=== PATIENT | male | born 1955 | race Caucasian/White ===

== ENCOUNTER 2022-04-01 19:36 | Outpatient (CLI) | payer MEDICARE, SELFPAY | END 2022-04-01 19:37 | disposition home or self-care (01) | LOC: AMB 04-30 16:05 | PROVIDERS: PCP Family Medicine; Visit Provider Emergency Medicine Emergency Medical Services | DX: R11.2 Nausea with vomiting, unspecified (principal); R53.1 Weakness | CPT/HCPCS: A0425; A0427 ==

== ENCOUNTER 2022-04-01 20:15 | Observation (INO) | payer MEDICARE, SELFPAY ==
[2022-04-01 20:20] VITALS: BP 154/81; PULSE 85; RESP 28; TEMP 37.4; O2SAT 88; BMI 36.3
--- NOTE | 2022-04-01 20:48 | CRLHL7_ITS ---
For Patients: As a result of the Cures Act, medical imaging exams and procedure reports are released immediately into your electronic medical record. You may view this report before your referring provider. If you have questions, please contact your health care provider. INDICATION: Cough and hypoxia. TECHNIQUE: Chest 1 views. COMPARISON: July 12, 2018. FINDINGS: Cardiovascular and mediastinum: Stable heart size. Lungs and pleural spaces: Low lung volumes. Left basilar atelectasis. No sign of pleural effusion. No pneumothorax. Bones and soft tissues: No significant findings. IMPRESSION: Left basilar atelectasis. Dictated by Everardo Pereira MD @ 04/01/2022 9:56:09 PM (Electronically Signed)
--- NOTE | 2022-04-01 20:52 | ED.NAVMDI ---
HPI - Nausea/Vomiting/Diarrhea General Chief complaint: Nausea/Vomiting Stated complaint: Weakness and vomiting Time Seen by Provider: 04/01/22 20:18 History of Present Illness HPI Narrative: 66-year-old man presenting to the emergency department with complaint of vomiting and diarrhea. Feeling weak. He is not actually short of breath. Past medical history does include a history of sleep apnea with CPAP. Admittedly diarrhea is rather a chronic thing. He wears ?diapers? he says. He has been vomiting without hematemesis. Started coughing last night and this seemed to return later today. This morning though he had a COVID shot. At this point now he feels chilled. Has not measured a fever. He does not actually have abdominal pain. No rashes noted. Is not complaining of dysuria. No chest pain. Past medical surgical history extracted from old [facility] document Bile reflux gastritis Paroxysmal atrial fibrillation Anticoagulation Nephrolithiasis Venous stasis dermatitis Systolic heart failure History of DVT Vitamin-D insufficiency Diabetes type 2 Autonomic neuropathy Polyneuropathy secondary diabetes History of pulmonary embolus Sleep apnea with CPAP Coronary artery disease I 1st Koplik's single anastomosis duodenal switch History of anxiety Dysthymia History of STEMI Venous insufficiency chronic Colonic neoplasm hypertension Obesity Status post gastric bypass Chronic kidney disease There Zaki rhinitis History choledocholithiasis Bilateral vitrectomy Charcot foot Related Data Home Medications Medication Instructions Recorded Confirmed ergocalciferol (vitamin D2) 1,250 04/01/22 mcg (50,000 unit) capsule glipizide 5 mg tablet, extended mg PO 04/01/22 release 24 hr lisinopril 10 tab 04/01/22 mg-hydrochlorothiazide 12.5 mg tablet metformin 500 mg tablet mg 04/01/22 metoprolol tartrate 50 mg tablet mg 04/01/22 nitroglycerin 0.4 mg sublingual mg 04/01/22 tablet omeprazole 20 mg capsule,delayed mg 04/01/22 release rivaroxaban 20 mg tablet (Xarelto) mg 04/01/22 simvastatin 20 mg tablet mg 04/01/22 Allergies Allergy/AdvReac Type Severity Reaction Status Date / Time NSAIDS (Non-Steroidal AdvReac Verified 04/01/22 20:25 Anti-Inflamma a statin AdvReac Unknown Uncoded 04/01/22 20:25 Review of Systems Status of ROS: Reports: 10 or more systems reviewed and unremarkable except as noted in History and below PFSH PFSH Social History Highest level of school completed/degree received: Associate degree: occupational, technical, vocational program Smoking Status: Never smoker Do you use any of these nicotine containing products: None Second hand tobacco smoke exposure: No How often do you have a drink containing alcohol: never AUDIT-C Alcohol total score: 0 Non-prescribed substance use: denies use Caffeine: Yes (coke or mountain dew daily) service: No Exam Narrative: Exam Narrative: Pleasant. Appears rather tired. Sounds a little congested. Oropharynx is dry. Dentition dry Appears chilled. Slightly tremulous. Cranial nerves 2-12 intact. Slight elevation with talking left side is mouth versus the right though Lungs is some diminished breath sounds in the left lower lung field. Otherwise clear cardiovascular Appears to be regular rate and rhythm. Distant. No JVD appreciated. Abdomen is overweight/obese soft and nontender. Lower extremities with just shy of 2+ pitting edema bilaterally. No erythematous changes. Const: Vital Signs, click to edit/add: Vital Signs - 24 hr 04/01/22 20:20 04/01/22 21:19 04/01/22 22:28 Temperature 99.4 F 98.8 F Pulse Rate [Left P ulse Oximeter] 85 79 Respiratory Rate 28 H 22 Blood Pressure [Ri ght Upper Arm] 154/81 H 135/68 Pulse Oximetry 88 96 94 Oxygen Delivery Me thod Room Air Nasal Cannula Oxygen Flow Rate 2 04/01/22 23:00 Temperature Pulse Rate [Left P ulse Oximeter] 74 Respiratory Rate 20 Blood Pressure [Ri ght Upper Arm] 131/55 L Pulse Oximetry 90 Oxygen Delivery Me thod Room Air Oxygen Flow Rate Documenting provider has reviewed patient's vital signs: yes Course Course Hospital Course: Placed on low-dose oxygen via nasal cannula Reevaluation(s) Reevaluation #1: Turned off oxygen. Satting at about 92-93%. Is no longer tremulous. Looks markedly improved. He would prefer to go home possible that he would defer to her recommendations. Time: 22:51 Reevaluation #2: With re-evaluation after turning off oxygenation as a test is satting at 89 90% as anticipated. Vital Signs Vital signs: Initial Vital Signs Temperature 99.4 F 04/01/22 20:20 Temperature Source Temporal Artery Scan 04/01/22 20:20 Pulse Rate 85 04/01/22 20:20 Respiratory Rate 28 H 04/01/22 20:20 Blood Pressure 154/81 H 04/01/22 20:20 Blood Pressure Mean 105 04/01/22 20:20 Blood Pressure Position Supine 04/01/22 20:20 Pulse Oximetry 88 04/01/22 20:20 Oxygen Delivery Method 04/01/22 20:20 Vital Signs Temperature 99.4 F 04/01/22 20:20 Pulse Rate 85 04/01/22 20:20 Respiratory Rate 28 H 04/01/22 20:20 Blood Pressure 154/81 H 04/01/22 20:20 Pulse Oximetry 88 04/01/22 20:20 Oxygen Delivery Method 04/01/22 20:20 Temperature 99 F 04/02/22 03:00 Pulse Rate 78 04/02/22 03:00 Respiratory Rate 20 04/02/22 03:00 Blood Pressure 152/55 H 04/02/22 03:00 Pulse Oximetry 94 04/02/22 03:00 Oxygen Delivery Method 04/02/22 03:00 Oxygen Flow Rate 2 04/01/22 22:28 MDM - Nausea/Vomiting/Diarrhea MDM Narrative Medical decision making narrative: After reassessment I did call our hospitalist. Pending full chemistries yet. Understandably he is now improved to low 90s with his oxygenation. I am concerned though given his comorbidities. Continues to drift down to 90% and below and rest. Was not actually sleeping with this as might expect given history of sleep apnea. COVID indeed positive. I also think Mr. Vernon would be too weak to go home. Contacted our hospitalist again for admission. This will go to overnight coverage. Given magnesium infusion Initial lactate 2. 2 hour repeat improves to 1.4. Had received L of fluids in the interim. Medical Records Attestation: I reviewed the patient's medical records. Lab Data Attestation: I reviewed the patient's lab results. Labs: Lab Results 04/01/22 04/01/22 04/01/22 Range/Units 21:10 21:10 21:10 WBC 9.50 (4.50-11.00) K/uL RBC 3.76 L (4.30-5.90) m/uL Hgb 11.1 L (13.5-17.5) gm/dL Hct 33.5 L (37.0-53.0) % MCV 89 (80-100) fL MCH 30 (26-34) pg MCHC 33 (32-36) gm/dL RDW Coeff of Rama 13.7 (11.5-15.5) % Plt Count 235 (140-440) K/uL Neut % (Auto) 85.7 H (42.0-72.0) % Lymph % (Auto) 4.5 L (20-44) % Mcclain % (Auto) 8.8 (0.0-11.0) % Eos % (Auto) 0.7 (0.0-7.0) % Baso % (Auto) 0.2 (0.0-3.0) % Neut # (Auto) 8.10 H (1.7-7.0) K/uL Lymph # (Auto) 0.40 L (0.90-2.90) K/uL Mcclain # (Auto) 0.80 (0.00-0.90) K/UL Eos # (Auto) 0.07 (0.00-0.50) K/uL Baso # (Auto) 0.02 (0.00-0.30) K/uL Abs Immat Gran (auto) 0.01 (0.00-0.30) K/uL INR 1.10 (0.91-1.10) VBG pH (7.32-7.43) VBG pCO2 (40-50) mmHG VBG pO2 (25-47) mmHG VBG HCO3 (21-28) mmol/L Sodium (135-149) mmol/L Potassium (3.6-5.1) mmol/L Chloride (96-114) mmol/L Carbon Dioxide (20-32) mmol/L BUN (7-30) mg/dL Creatinine (0.5-1.5) mg/dL Estimated Creat Clear Estimated GFR ml/min Glucose (60-115) mg/dL Venous Lactic Acid (Serial Order) Calcium (8.4-10.6) mg/dL Magnesium 1.5 (1.5-2.6) mg/dL Total Bilirubin (0.1-1.5) mg/dL Direct Bilirubin (0.0-0.5) mg/dL AST (12-35) U/L ALT (4-50) U/L Alkaline Phosphatase (40-150) U/L C-Reactive Protein 1.5 H (0.5-1.0) mg/dL NT-Pro-B Natriuret Pep (0-125) PG/mL Total Protein (6.0-8.3) g/dL Albumin (3.3-5.0) g/dL SARS-CoV-2 (PCR) (Negative) SARS-CoV-2 Ag (Rapid) (Negative) 04/01/22 04/01/22 04/01/22 Range/Units 21:10 21:10 21:10 WBC (4.50-11.00) K/uL RBC (4.30-5.90) m/uL Hgb (13.5-17.5) gm/dL Hct (37.0-53.0) % MCV (80-100) fL MCH (26-34) pg MCHC (32-36) gm/dL RDW Coeff of Rama (11.5-15.5) % Plt Count (140-440) K/uL Neut % (Auto) (42.0-72.0) % Lymph % (Auto) (20-44) % Mcclain % (Auto) (0.0-11.0) % Eos % (Auto) (0.0-7.0) % Baso % (Auto) (0.0-3.0) % Neut # (Auto) (1.7-7.0) K/uL Lymph # (Auto) (0.90-2.90) K/uL Mcclain # (Auto) (0.00-0.90) K/UL Eos # (Auto) (0.00-0.50) K/uL Baso # (Auto) (0.00-0.30) K/uL Abs Immat Gran (auto) (0.00-0.30) K/uL INR (0.91-1.10) VBG pH 7.418 (7.32-7.43) VBG pCO2 40 (40-50) mmHG VBG pO2 42.0 (25-47) mmHG VBG HCO3 26 (21-28) mmol/L Sodium (135-149) mmol/L Potassium (3.6-5.1) mmol/L Chloride (96-114) mmol/L Carbon Dioxide (20-32) mmol/L BUN (7-30) mg/dL Creatinine (0.5-1.5) mg/dL Estimated Creat Clear Estimated GFR ml/min Glucose (60-115) mg/dL Venous Lactic Acid (Serial Order) Calcium (8.4-10.6) mg/dL Magnesium (1.5-2.6) mg/dL Total Bilirubin (0.1-1.5) mg/dL Direct Bilirubin (0.0-0.5) mg/dL AST (12-35) U/L ALT (4-50) U/L Alkaline Phosphatase (40-150) U/L C-Reactive Protein (0.5-1.0) mg/dL NT-Pro-B Natriuret Pep (0-125) PG/mL Total Protein (6.0-8.3) g/dL Albumin (3.3-5.0) g/dL SARS-CoV-2 (PCR) POSITIVE SARS-CoV-2 A (Negative) SARS-CoV-2 Ag (Rapid) (Negative) 04/01/22 04/01/22 04/01/22 Range/Units 21:10 21:10 22:14 WBC (4.50-11.00) K/uL RBC (4.30-5.90) m/uL Hgb (13.5-17.5) gm/dL Hct (37.0-53.0) % MCV (80-100) fL MCH (26-34) pg MCHC (32-36) gm/dL RDW Coeff of Rama (11.5-15.5) % Plt Count (140-440) K/uL Neut % (Auto) (42.0-72.0) % Lymph % (Auto) (20-44) % Mcclain % (Auto) (0.0-11.0) % Eos % (Auto) (0.0-7.0) % Baso % (Auto) (0.0-3.0) % Neut # (Auto) (1.7-7.0) K/uL Lymph # (Auto) (0.90-2.90) K/uL Mcclain # (Auto) (0.00-0.90) K/UL Eos # (Auto) (0.00-0.50) K/uL Baso # (Auto) (0.00-0.30) K/uL Abs Immat Gran (auto) (0.00-0.30) K/uL INR (0.91-1.10) VBG pH (7.32-7.43) VBG pCO2 (40-50) mmHG VBG pO2 (25-47) mmHG VBG HCO3 (21-28) mmol/L Sodium 138 (135-149) mmol/L Potassium 3.6 (3.6-5.1) mmol/L Chloride 107 (96-114) mmol/L Carbon Dioxide 22 (20-32) mmol/L BUN 13 (7-30) mg/dL Creatinine 1.3 (0.5-1.5) mg/dL Estimated Creat Clear 57.41 Estimated GFR 61 ml/min Glucose 114 (60-115) mg/dL Venous Lactic Acid (Serial Order) Calcium 8.2 L (8.4-10.6) mg/dL Magnesium (1.5-2.6) mg/dL Total Bilirubin 0.5 (0.1-1.5) mg/dL Direct Bilirubin 0.3 (0.0-0.5) mg/dL AST 65 H (12-35) U/L ALT 33 (4-50) U/L Alkaline Phosphatase 92 (40-150) U/L C-Reactive Protein (0.5-1.0) mg/dL NT-Pro-B Natriuret Pep 1810 H (0-125) PG/mL Total Protein 6.2 (6.0-8.3) g/dL Albumin 3.3 (3.3-5.0) g/dL SARS-CoV-2 (PCR) (Negative) SARS-CoV-2 Ag (Rapid) positive (Negative) Discharge Plan Discharge Clinical Impression: COVID-19, Weakness, Dehydration Patient Disposition: Admitted As Inpatient Condition: Stable
[2022-04-01] MEDS: 0.9 % SODIUM CHLORIDE 1000 ml 1,000 ML IV (21:16)
[2022-04-01] MEDS: ONDANSETRON 2 MG/ML inj 4 MG IVP (21:16)
[2022-04-01 21:19] VITALS: O2SAT 96
[2022-04-01 21:23] LABS: Basophils Absolute Auto 0.02 K/uL (0.00-0.30); Basophils Percent Auto 0.2 % (0.0-3.0); Eosinophils Absolute Auto 0.07 K/uL (0.00-0.50); Eosinophils Percent Auto 0.7 % (0.0-7.0); Hematocrit 33.5 % (37.0-53.0); Hemoglobin* 11.1 gm/dL (13.5-17.5); Immature Granulocytes Abs Auto 0.01 K/uL (0.00-0.30); Lymphocytes Percent Auto 4.5 % (20-44); Mean Corpuscular HGB Conc 33 gm/dL (32-36); Mean Corpuscular Hemoglobin 30 pg (26-34); Mean Corpuscular Volume 89 fL (80-100); Monocytes Percent Auto 8.8 % (0.0-11.0); Neutrophils Percent Auto 85.7 % (42.0-72.0); Platelet Count* 235 K/uL (140-440); RDW Coefficient of Variation % 13.7 % (11.5-15.5); Red Blood Count 3.76 m/uL (4.30-5.90)
[2022-04-01 21:24] LABS: PCO2 VBG 40 mmHG (40-50); pH VBG 7.418 (7.32-7.43)
[2022-04-01 21:25] LABS: HCO3 VBG 26 mmol/L (21-28); Slide Review Reflex No
[2022-04-01 21:43] LABS: Magnesium* 1.5 mg/dL (1.5-2.6)
[2022-04-01 21:47] LABS: C Reactive Protein* 1.5 mg/dL (0.5-1.0)
[2022-04-01 21:52] LABS: NT Pro B Type NatriureticPept* 1810 PG/mL (0-125)
[2022-04-01 22:03] LABS: SARS PCR* POSITIVE SARS-CoV-2 (Negative)
[2022-04-01 22:07] LABS: Prothrombin Time 14.6 Seconds
[2022-04-01 22:28] VITALS: BP 135/68; PULSE 79; RESP 22; TEMP 37.1; O2SAT 94
[2022-04-01] MEDS: MAGNESIUM SULFATE 2 GM/50 ML PIGGYBACK IVPB (22:29)
[2022-04-01 22:48] LABS: SARS Antigen* positive (Negative)
[2022-04-01 22:49] LABS: Albumin* 3.3 g/dL (3.3-5.0); Chloride* 107 mmol/L (96-114); Sodium* 138 mmol/L (135-149)
[2022-04-01 22:50] LABS: Potassium* 3.6 mmol/L (3.6-5.1)
[2022-04-01 22:52] LABS: Alanine Aminotransferase* 33 U/L (4-50); Alkaline Phosphatase* 92 U/L (40-150); Aspartate Amino Transferase* 65 U/L (12-35); Bilirubin Direct* 0.3 mg/dL (0.0-0.5); Bilirubin Total* 0.5 mg/dL (0.1-1.5); Blood Urea Nitrogen* 13 mg/dL (7-30); Carbon Dioxide* 22 mmol/L (20-32); Creatinine* 1.3 mg/dL (0.5-1.5); Est. Creatinine Clearance* 57.41; Estimated Glomerular Filt Rate 61 ml/min; Glucose* 114 mg/dL (60-115); Total Protein* 6.2 g/dL (6.0-8.3)
[2022-04-01 22:53] LABS: Calcium* 8.2 mg/dL (8.4-10.6)
[2022-04-01 23:00] VITALS: BP 131/55; PULSE 74; RESP 20; O2SAT 90
[2022-04-01 23:28] LABS: Lactate Sepsis 2 Hour 1.4 mmol/L (0.5-1.9)
--- NOTE | 2022-04-01 23:42 | ED.NURSE ---
ambulated pt. pt stated he felt weak. pt is worried about his at home and between the two of them not being able to takecare of him. informed.
--- NOTE | 2022-04-01 23:51 | W.PC.EDHO ---
Primary Language: Preferred Language: Orientation Status: [x] Alert & Oriented [] Slight Confusion [] Known Dx Dementia Transfers By: [] Assist of 1 [x] Assist of 2 [] Lift Active Medications Discontinued Medications Generic Name Dose Route Start Last Admin Trade Name Inderjit PRN Reason Stop Dose Admin Sodium Chloride 1,000 mls @ 1,000 mls/hr 04/01/22 20:48 04/01/22 22:30 0.9 % Sodium Chloride 1000 Ml IV 04/01/22 21:47 Infused .Q1H ONE Infusion Magnesium Sulfate 2 gm 04/01/22 22:08 04/01/22 22:29 Magnesium Sulfate 2 Gm/50 Ml Piggyback IVPB 04/01/22 22:09 2 gm ONCE ONE Administration Ondansetron HCl 4 mg 04/01/22 20:48 04/01/22 21:16 Ondansetron 2 Mg/Ml Inj IVP 04/01/22 20:49 4 mg ONCE ONE Administration Description of Symptoms ED Triage Present Problem pt was feeling well this am, got covid booster Description shot ~1000, presents now with weakness, n/v. states diarrhea is chronic. denies acute pains. has chronic back issues. ED Triage Date of Onset of 04/01/22 Symptoms Pain Pain Intensity 6 Oxygen Administration Pulse Oximetry 94 Pulse Oximetry 96 Pulse Oximetry 88 Oxygen Delivery Method Nasal Cannula Oxygen Delivery Method Room Air Oxygen Flow Rate 2
[2022-04-02] VITALS: BP 121/71; PULSE 74; RESP 16; O2SAT 91
[2022-04-02] MEDS: dexAMETHasone 10 MG/ML inj 6 MG IVP (00:10)
[2022-04-02 00:35] VITALS: BP 149/73; PULSE 74; RESP 18; RESP 20; TEMP 37.3; O2SAT 96; BMI 36.7
[2022-04-02 00:41] VITALS: O2SAT 96
--- NOTE | 2022-04-02 00:48 | PM.IMCN1 ---
Date of Consult Consult date: 04/02/22 Primary Care Provider: Domingo Sheffield MD Consult Narrative Narrative: Loki Vernon is a 66 year old male [facility] Social History Smoking Status: Never smoker How often do you have a drink containing alcohol: never AUDIT-C Alcohol total score: 0 Non-prescribed substance use: denies use Meds Home Medications and Allergies Home Medications Medication Instructions Recorded Confirmed Type ergocalciferol (vitamin D2) 1,250 04/01/22 History mcg (50,000 unit) capsule glipizide 5 mg tablet, extended mg PO 04/01/22 History release 24 hr lisinopril 10 tab 04/01/22 History mg-hydrochlorothiazide 12.5 mg tablet metformin 500 mg tablet mg 04/01/22 History metoprolol tartrate 50 mg tablet mg 04/01/22 History nitroglycerin 0.4 mg sublingual mg 04/01/22 History tablet omeprazole 20 mg capsule,delayed mg 04/01/22 History release rivaroxaban 20 mg tablet (Xarelto) mg 04/01/22 History simvastatin 20 mg tablet mg 04/01/22 History Allergies Allergy/AdvReac Type Severity Reaction Status Date / Time NSAIDS (Non-Steroidal AdvReac Verified 04/01/22 20:25 Anti-Inflamma a statin AdvReac Unknown Uncoded 04/01/22 20:25 Exam Const: Vital Signs, click to edit/add: Vital Signs - 24 hr 04/01/22 20:20 04/01/22 21:19 04/01/22 22:28 Temperature 99.4 F 98.8 F Pulse Rate [Left P ulse Oximeter] 85 79 Respiratory Rate 28 H 22 Blood Pressure [Ri ght Upper Arm] 154/81 H 135/68 Pulse Oximetry 88 96 94 Oxygen Delivery Me thod Room Air Nasal Cannula Oxygen Flow Rate 2 04/02/22 00:00 04/01/22 23:00 Temperature Pulse Rate [Left P ulse Oximeter] 74 74 Respiratory Rate 16 20 Blood Pressure [Ri ght Upper Arm] 121/71 131/55 L Pulse Oximetry 91 90 Oxygen Delivery Me thod Room Air Room Air Oxygen Flow Rate Labs Labs: Short CBC 04/01/22 Range/Units 21:10 WBC 9.50 (4.50-11.00) K/uL Hgb 11.1 L (13.5-17.5) gm/dL Hct 33.5 L (37.0-53.0) % Plt Count 235 (140-440) K/uL BMP 04/01/22 21:10 Sodium 138 Potassium 3.6 Chloride 107 Carbon Dioxide 22 BUN 13 Creatinine 1.3 Glucose 114 Calcium 8.2 L Liver Function 04/01/22 Range/Units 21:10 Total Bilirubin 0.5 (0.1-1.5) mg/dL Direct Bilirubin 0.3 (0.0-0.5) mg/dL AST 65 H (12-35) U/L ALT 33 (4-50) U/L Alkaline Phosphatase 92 (40-150) U/L Albumin 3.3 (3.3-5.0) g/dL Assessment and Plan Assessment and plan (1) COVID-19: Status: Acute Plan [facility] Hospitalist CONSULTATION NOTE: Reason for consult: COVID infection HPI: Patient is a pleasant 66-year-old gentleman who had his COVID booster on the morning of 04/01/2022 and later on developed worsening cough. He had a bit of cough since the day prior. He is also had some fevers and chills. He had a mild headache but no lightheadedness. He denies any chest pain. He has not felt for particular short of breath despite being mildly hypoxic on presentation to the ER. He denies any abdominal pain, nausea, vomiting. He does have chronic diarrhea. He denies any dysuria. Patient is a non-smoker. He does not drink alcohol or use recreational drugs. We did discuss CODE STATUS and he wishes to be full code. Exam (performed via interactive video with assistance of bedside nurse): General: Alert, cooperative, no acute distress HEENT: Pupils reported ERRL, oral mucosa pink and moist without erythema Lungs: Clear to auscultation bilaterally without crackle or wheeze CV: Regular rate and rhythm without loud murmur rub or gallop Abd: Bowel sounds present, denies tenderness and does not exhibit signs of pain with palpation done by bedside nurse Ext: +2 pitting edema bilateral lower extremities Skin: No rashes, bruises or lesions appreciated on gross visualization of exposed skin Neuro: Alert, oriented x 3. CN III -VII, XI, XII grossly intact, moves all extremities without any significant focal deficit appreciated by nurse Assessment and Plan: 1. COVID infection Patient is a pleasant 66-year-old male admitted for COVID infection. He was requiring oxygen on presentation so we will place him on dexamethasone 6 mg IV daily. Remdesivir could be considered for the morning if available at the facility. We will work to titrate patient's oxygen off. We will place albuterol nebs.. He will also have PRNs for pain and nausea. His chronic outpatient medications will need to be continued as appropriate when fully verified. He is chronically anticoagulated so no pharmacologic DVT prophylaxis has been ordered. Patient is a full code. [facility] you [facility]. This service is available for further assistance as requested by your care team by calling [phone].
[2022-04-02 03:00] VITALS: BP 152/55; PULSE 78; RESP 20; TEMP 37.2; O2SAT 94
--- NOTE | 2022-04-02 06:34 | PC.NURSE ---
Admission/shift note: Pt to room 279 for weakness r/t Covid. A&O, afebrile, oxygen saturations in the low to mid 90's on room air. Pt up SBA to the BR, incontinent of urine/stool, but quite steady on his feet, pt reports he does not feel nearly as weak as he did before coming to the ER. Pt denies SOB, CP, and N/V. No emesis this shift and has denied need for PRN antiemetic. Pt stated he has chronic pain that is always 5/10, pt declined any pain medication. Pt resting in bed with call light within reach.
[2022-04-02 08:41] VITALS: BP 129/67; PULSE 74; RESP 20; TEMP 36.5; O2SAT 97
--- NOTE | 2022-04-02 13:18 | PM.DS1 ---
DS: Providers Provider Time Seen by Provider: 08:52 Date Seen: 04/02/22 Date of admission: 04/01/22 23:38 Primary care physician: Domingo Sheffield MD Admitting Clinician: Dash Ramírez MD Attending Physician on discharge: Ashley Beaulieu MD Date of Discharge: 04/02/22 DS: Diagnosis Discharge Diagnosis (1) Weakness: Status: Acute (2) Dehydration: Status: Acute (3) COVID-19: Status: Acute (4) Hyperlipidemia: Status: Chronic (5) Diabetes mellitus type 2 in obese: Status: Chronic Problem details: Diagnosed 1989, severe neuropathy, proliferative retinopathy, bilateral vitrectomy, Charcot foot on the left in 2010, retinal exam stable in 2012 (6) Hypertension: Status: Chronic (7) Coronary artery disease: Status: Chronic (8) Heart failure with preserved ejection fraction: Status: Chronic (9) Paroxysmal atrial fibrillation: Status: Chronic (10) Anticoagulation adequate: Status: Acute DS: Summary Hospital Course Hospital Course: This is a 66-year-old male who got his 4th COVID vaccination yesterday morning with the bivalent vaccine. Suddenly in the afternoon he felt weak, fatigued, nauseous and noted a dry cough. He came in for evaluation and was found to have positive COVID PCR. Although he was briefly on oxygen via nasal cannula in the emergency department, he has not needed it at all since then and has had no chest pain or shortness of breath. He was starting to feel much better already last night and today is almost back to normal. He did get 1 dose of dexamethasone, but he has not needed any oxygen overnight. We had a lengthy discussion about paxlovid, Remdesivir, and dexamethasone. Since he is on Xarelto, he would be unable to take paxlovid. He is checking with his insurance to see if Remdesivir will be covered. Although I have ordered it, he has not yet wanted to get the medication until he knows if it will be covered. He is well enough and improved that he will go home today. If he chooses to get Remdesivir today prior to going home, I will order it going forward as well for a total of 3 doses. Status at Discharge Functional status at discharge: independent ambulation Overall status at discharge: patient is back to baseline Time Spent with Patient Time attestation: Total time spent providing and/or coordinating discharge services: Exam Narrative: Exam Narrative: General: No acute distress. Awake, alert, oriented x3. No pallor. No jaundice. Oropharynx: Clear. Mucous membranes moist. Cardiovascular: Regular rate and rhythm. No murmurs, gallops, or rubs. Respiratory: Clear to auscultation bilaterally. No wheezes or crackles. Abdomen: Bowel sounds present. Soft, nondistended, nontender. Extremities: No pedal edema. Const: Vital Signs, click to edit/add: Vital Signs - 24 hr 04/01/22 20:20 04/01/22 21:19 04/01/22 22:28 Temperature 99.4 F 98.8 F Pulse Rate [Left P ulse Oximeter] 85 79 Respiratory Rate 28 H 22 Blood Pressure [Le ft Arm] Blood Pressure [Ri ght Arm] Blood Pressure [Ri ght Upper Arm] 154/81 H 135/68 Pulse Oximetry 88 96 94 Oxygen Delivery Me thod Room Air Nasal Cannula Oxygen Flow Rate 2 04/02/22 00:35 04/02/22 00:35 04/02/22 00:00 Temperature 99.2 F Pulse Rate [Left P ulse Oximeter] 74 74 Respiratory Rate 18 20 16 Blood Pressure [Le ft Arm] 149/73 H Blood Pressure [Ri ght Arm] Blood Pressure [Ri ght Upper Arm] 121/71 Pulse Oximetry 96 96 91 Oxygen Delivery Me thod Room Air Room Air Room Air Oxygen Flow Rate 04/01/22 23:00 04/02/22 00:41 04/02/22 03:00 Temperature 99 F Pulse Rate [Left P ulse Oximeter] 74 78 Respiratory Rate 20 20 Blood Pressure [Le ft Arm] 152/55 H Blood Pressure [Ri ght Arm] Blood Pressure [Ri ght Upper Arm] 131/55 L Pulse Oximetry 90 96 94 Oxygen Delivery Me thod Room Air Room Air Room Air Oxygen Flow Rate 04/02/22 08:41 Temperature 97.7 F Pulse Rate [Left P ulse Oximeter] 74 Respiratory Rate 20 Blood Pressure [Le ft Arm] Blood Pressure [Ri ght Arm] 129/67 Blood Pressure [Ri ght Upper Arm] Pulse Oximetry 97 Oxygen Delivery Me thod Room Air Oxygen Flow Rate DS: Data Data Completed and Pending Completed studies during hospitalization: Ordering Physician: Raj Collier MD Date of Service: 04/01/22 Procedure(s): XR chest 1V portable Accession Number(s): [id number] cc: Domingo Sheffield MD; Raj Collier MD~ For Patients: As a result of the Century Cures Act, medical imaging exams and procedure reports are released immediately into your electronic medical record. You may view this report before your referring provider. If you have questions, please contact your health care provider. INDICATION: Cough and hypoxia. TECHNIQUE: Chest 1 views. COMPARISON: July 12, 2018. FINDINGS: Cardiovascular and mediastinum: Stable heart size. Lungs and pleural spaces: Low lung volumes. Left basilar atelectasis. No sign of pleural effusion. No pneumothorax. Bones and soft tissues: No significant findings. IMPRESSION: Left basilar atelectasis. Dictated by Everardo Pereira MD @ 04/01/2022 9:56:09 PM (Electronically Signed) Labs on day of discharge: Labs from last 24 hours 04/01/22 04/01/22 04/01/22 22:14 21:10 21:10 WBC RBC Hgb Hct MCV MCH MCHC RDW Coeff of Rama Plt Count Neut % (Auto) Lymph % (Auto) [place] % (Auto) Eos % (Auto) Baso % (Auto) Neut # (Auto) Lymph # (Auto) [place] # (Auto) Eos # (Auto) Baso # (Auto) Abs Immat Gran (auto) INR VBG pH VBG pCO2 VBG pO2 VBG HCO3 Sodium 138 Potassium 3.6 Chloride 107 Carbon Dioxide 22 BUN 13 Creatinine 1.3 Estimated Creat Clear 57.41 Estimated GFR 61 Glucose 114 Venous Lactic Acid (Serial Order) Calcium 8.2 L Magnesium Total Bilirubin 0.5 Direct Bilirubin 0.3 AST 65 H ALT 33 Alkaline Phosphatase 92 C-Reactive Protein NT-Pro-B Natriuret Pep 1810 H Total Protein 6.2 Albumin 3.3 SARS-CoV-2 (PCR) SARS-CoV-2 Ag (Rapid) positive 04/01/22 04/01/22 04/01/22 21:10 21:10 21:10 WBC RBC Hgb Hct MCV MCH MCHC RDW Coeff of Rama Plt Count Neut % (Auto) Lymph % (Auto) [place] % (Auto) Eos % (Auto) Baso % (Auto) Neut # (Auto) Lymph # (Auto) [place] # (Auto) Eos # (Auto) Baso # (Auto) Abs Immat Gran (auto) INR VBG pH 7.418 VBG pCO2 40 VBG pO2 42.0 VBG HCO3 26 Sodium Potassium Chloride Carbon Dioxide BUN Creatinine Estimated Creat Clear Estimated GFR Glucose Venous Lactic Acid (Serial Order) Calcium Magnesium Total Bilirubin Direct Bilirubin AST ALT Alkaline Phosphatase C-Reactive Protein NT-Pro-B Natriuret Pep Total Protein Albumin SARS-CoV-2 (PCR) POSITIVE SARS-CoV-2 A SARS-CoV-2 Ag (Rapid) 04/01/22 04/01/22 04/01/22 21:10 21:10 21:10 WBC 9.50 RBC 3.76 L Hgb 11.1 L Hct 33.5 L MCV 89 MCH 30 MCHC 33 RDW Coeff of Rama 13.7 Plt Count 235 Neut % (Auto) 85.7 H Lymph % (Auto) 4.5 L [place] % (Auto) 8.8 Eos % (Auto) 0.7 Baso % (Auto) 0.2 Neut # (Auto) 8.10 H Lymph # (Auto) 0.40 L [place] # (Auto) 0.80 Eos # (Auto) 0.07 Baso # (Auto) 0.02 Abs Immat Gran (auto) 0.01 INR 1.10 VBG pH VBG pCO2 VBG pO2 VBG HCO3 Sodium Potassium Chloride Carbon Dioxide BUN Creatinine Estimated Creat Clear Estimated GFR Glucose Venous Lactic Acid (Serial Order) Calcium Magnesium 1.5 Total Bilirubin Direct Bilirubin AST ALT Alkaline Phosphatase C-Reactive Protein 1.5 H NT-Pro-B Natriuret Pep Total Protein Albumin SARS-CoV-2 (PCR) SARS-CoV-2 Ag (Rapid) Discharge Plan Discharge Disposition: Home, Self-Care Date of Admission: 04/01/22 23:38 Attending Provider on Discharge: Ashley Beaulieu Primary Care Provider: Domingo Sheffield Condition: Improved Anticipated Discharge Date/Time: 04/02/22 13:15 Discharge Medications: Continued metformin 500 mg tablet 1,000 mg PO BIDWM glipizide 5 mg tablet extended release 24hr 15 mg PO DAILY simvastatin 20 mg tablet 20 mg PO HS metoprolol tartrate 50 mg tablet 50 mg PO BID nitroglycerin 0.4 mg tablet, sublingual 0.4 mg sublingual Q5M PRN Label Comments: ONE TABLET UNDER TONGUE NEEDED FOR CHEST PAIN omeprazole 20 mg capsule,delayed release(DR/EC) 40 mg PO DAILY Label Comments: TAKE 2 CAPSULES BY MOUTH DAILY ergocalciferol (vitamin D2) 1,250 mcg (50,000 unit) capsule 50,000 unit PO DAILY Label Comments: TAKE 1 CAPSULE BY MOUTH DAILY AFTER BARIATRIC SURGERY lisinopril-hydrochlorothiazide 10-12.5 mg tablet 1 tab PO DAILY Label Comments: TAKE 1 TABLET BY MOUTH EVERY DAY Xarelto 20 mg tablet 20 mg PO DAILY@18 albuterol sulfate [Ventolin HFA] 90 mcg/actuation HFA aerosol inhaler 2 inh inhalation QID PRN ascorbic acid (vitamin C) 500 mg tablet 1 g PO DAILY calcium carbonate-vitamin D3 [Calcium 600 + D(3)] 600 mg-5 mcg (200 unit) tablet 2 tab PO BID cetirizine [24Hour Allergy] 10 mg tablet 10 mg PO DAILY PRN copper gluconate 2 mg tablet 4 mg PO DAILY cyanocobalamin (vitamin B-12) [Vitamin B-12] 1,000 mcg tablet 500 mcg PO DAILY ferrous sulfate [Feosol] 325 mg (65 mg iron) tablet 325 mg PO BID magnesium oxide 400 mg (241.3 mg magnesium) tablet 400 mg PO DAILY multivitamin Tablet 1 tab PO DAILY vitamin A 10,000 unit capsule 10,000 unit PO DAILY zinc sulfate 50 mg zinc (220 mg) capsule 50 mg PO BID Discharge Orders: Discharge Order (Routine); Ordered 04/02/22 Ordered By: Ashley Beaulieu Patient Education: Remdesivir (By injection) (Paul), Weakness (ALICE), COVID-19 (Coronavirus Disease 2019) (ALICE) Activity Restrictions/Additional Instructions: Remdesivir IV daily for 2 more days, start tomorrow. Activity Level: Activity as Tolerated Discharge Diet: Diabetic Follow Up Appointments: Domingo Sheffiedl MD [Primary Care Provider] - (as needed) Forms: [employer] Info Instructions
--- NOTE | 2022-04-02 14:39 | PM.IMHP1 ---
Hospitalist- H&P: HPI History of Present Illness Time Seen by Provider: 08:52 Date Seen: 04/02/22 Chief complaint: Weakness and vomiting Narrative: Loki Vernon is a 66 year old male who got his 4th COVID vaccination yesterday morning with the bivalent vaccine. Suddenly in the afternoon he felt weak, fatigued, nauseous and noted a dry cough. He came in for evaluation and was found to have positive COVID PCR. Although he was briefly on oxygen via nasal cannula in the emergency department, he has not needed it at all since then and has had no chest pain or shortness of breath. He was starting to feel much better already last night and today is almost back to normal. He did get 1 dose of dexamethasone, but he has not needed any oxygen overnight. Review of Systems Status of ROS: Reports: 6 or more systems reviewed and unremarkable except as noted in History and below [facility] Medical History (Updated 04/02/22 @ 15:10 by Ashley Beaulieu MD) Allergic rhinitis Anemia of chronic disease Anticoagulation adequate Anxiety state Autonomic neuropathy Benign neoplasm of colon Bilateral kidney stones Bile reflux gastritis Chronic kidney disease Chronic venous insufficiency Coronary artery disease Depressive disorder Diabetes mellitus type 2 in obese Diabetic polyneuropathy Heart failure with preserved ejection fraction History of dysthymic disorder Hyperlipidemia Hypertension Morbid obesity Myocardial infarction PADMINI (obstructive sleep apnea) Paroxysmal atrial fibrillation Vitamin D insufficiency Surgical History (Updated 04/02/22 @ 15:15 by Ashley Beaulieu MD) H/O cataract extraction H/O heart artery stent H/O laminectomy H/O vitrectomy History of appendectomy History of bilateral YAG laser iridotomy History of carpal tunnel release History of esophagogastroduodenoscopy (EGD) S/P cholecystectomy Social History Highest level of school completed/degree received: Associate degree: occupational, technical, vocational program Smoking Status: Never smoker Do you use any of these nicotine containing products: None Second hand tobacco smoke exposure: No How often do you have a drink containing alcohol: never AUDIT-C Alcohol total score: 0 Non-prescribed substance use: denies use Caffeine: Yes (coke or mountain dew daily) service: No Meds Home Medications and Allergies Home Medications Medication Instructions Recorded Confirmed Type ergocalciferol (vitamin D2) 1,250 50,000 unit PO DAILY 04/01/22 04/02/22 History mcg (50,000 unit) capsule glipizide 5 mg tablet, extended 15 mg PO DAILY 04/01/22 04/02/22 History release 24 hr lisinopril 10 1 tab PO DAILY 04/01/22 04/02/22 History mg-hydrochlorothiazide 12.5 mg tablet metformin 500 mg tablet 1,000 mg PO BIDWM 04/01/22 04/02/22 History metoprolol tartrate 50 mg tablet 50 mg PO BID 04/01/22 04/02/22 History nitroglycerin 0.4 mg sublingual 0.4 mg sublingual Q5M PRN 04/01/22 04/02/22 History tablet omeprazole 20 mg capsule,delayed 40 mg PO DAILY 04/01/22 04/02/22 History release rivaroxaban 20 mg tablet (Xarelto) 20 mg PO DAILY@18 04/01/22 04/02/22 History simvastatin 20 mg tablet 20 mg PO HS 04/01/22 04/02/22 History albuterol sulfate 90 mcg/actuation 2 inh inhalation QID PRN 04/02/22 04/02/22 History aerosol inhaler (Ventolin HFA) ascorbic acid (vitamin C) 500 mg 1 g PO DAILY 04/02/22 04/02/22 History tablet calcium carbonate 600 mg-vitamin 2 tab PO BID 04/02/22 04/02/22 History D3 5 mcg (200 unit) tablet (Calcium 600 + D(3)) cetirizine 10 mg tablet (24Hour 10 mg PO DAILY PRN 04/02/22 04/02/22 History Allergy) copper gluconate 2 mg tablet 4 mg PO DAILY 04/02/22 04/02/22 History cyanocobalamin (vitamin B-12) 500 mcg PO DAILY 04/02/22 04/02/22 History 1,000 mcg tablet (Vitamin B-12) ferrous sulfate 325 mg (65 mg 325 mg PO BID 04/02/22 04/02/22 History iron) tablet (Feosol) magnesium oxide 400 mg (241.3 mg 400 mg PO DAILY 04/02/22 04/02/22 History magnesium) tablet multivitamin 1 tab PO DAILY 04/02/22 04/02/22 History vitamin A 10,000 unit capsule 10,000 unit PO DAILY 04/02/22 04/02/22 History zinc sulfate 50 mg zinc (220 mg) 50 mg PO BID 04/02/22 04/02/22 History capsule Allergies Allergy/AdvReac Type Severity Reaction Status Date / Time NSAIDS (Non-Steroidal AdvReac Verified 04/01/22 20:25 Anti-Inflamma a statin AdvReac Unknown Uncoded 04/01/22 20:25 Exam Narrative: Exam Narrative: Same day admission/discharge, see d/c summary for exam Const: Vital Signs, click to edit/add: Vital Signs - 24 hr 04/01/22 20:20 04/01/22 21:19 04/01/22 22:28 Temperature 99.4 F 98.8 F Pulse Rate [Left P ulse Oximeter] 85 79 Respiratory Rate 28 H 22 Blood Pressure [Le ft Arm] Blood Pressure [Ri ght Arm] Blood Pressure [Ri ght Upper Arm] 154/81 H 135/68 Pulse Oximetry 88 96 94 Oxygen Delivery Me thod Room Air Nasal Cannula Oxygen Flow Rate 2 04/02/22 00:35 04/02/22 00:35 04/02/22 00:00 Temperature 99.2 F Pulse Rate [Left P ulse Oximeter] 74 74 Respiratory Rate 18 20 16 Blood Pressure [Le ft Arm] 149/73 H Blood Pressure [Ri ght Arm] Blood Pressure [Ri ght Upper Arm] 121/71 Pulse Oximetry 96 96 91 Oxygen Delivery Me thod Room Air Room Air Room Air Oxygen Flow Rate 04/01/22 23:00 04/02/22 00:41 04/02/22 03:00 Temperature 99 F Pulse Rate [Left P ulse Oximeter] 74 78 Respiratory Rate 20 20 Blood Pressure [Le ft Arm] 152/55 H Blood Pressure [Ri ght Arm] Blood Pressure [Ri ght Upper Arm] 131/55 L Pulse Oximetry 90 96 94 Oxygen Delivery Me thod Room Air Room Air Room Air Oxygen Flow Rate 04/02/22 08:41 Temperature 97.7 F Pulse Rate [Left P ulse Oximeter] 74 Respiratory Rate 20 Blood Pressure [Le ft Arm] Blood Pressure [Ri ght Arm] 129/67 Blood Pressure [Ri ght Upper Arm] Pulse Oximetry 97 Oxygen Delivery Me thod Room Air Oxygen Flow Rate Hospitalist - H&P: Result Labs Labs: Short CBC 04/01/22 Range/Units 21:10 WBC 9.50 (4.50-11.00) K/uL Hgb 11.1 L (13.5-17.5) gm/dL Hct 33.5 L (37.0-53.0) % Plt Count 235 (140-440) K/uL BMP 04/01/22 21:10 Sodium 138 Potassium 3.6 Chloride 107 Carbon Dioxide 22 BUN 13 Creatinine 1.3 Glucose 114 Calcium 8.2 L Liver Function 04/01/22 Range/Units 21:10 Total Bilirubin 0.5 (0.1-1.5) mg/dL Direct Bilirubin 0.3 (0.0-0.5) mg/dL AST 65 H (12-35) U/L ALT 33 (4-50) U/L Alkaline Phosphatase 92 (40-150) U/L Albumin 3.3 (3.3-5.0) g/dL Ordering Physician: Raj Collier MD Date of Service: 04/01/22 Procedure(s): XR chest 1V portable Accession Number(s): [id number] cc: Domingo Sheffield MD; Raj Collier MD~ For Patients: As a result of the Century Cures Act, medical imaging exams and procedure reports are released immediately into your electronic medical record. You may view this report before your referring provider. If you have questions, please contact your health care provider. INDICATION: Cough and hypoxia. TECHNIQUE: Chest 1 views. COMPARISON: July 12, 2018. FINDINGS: Cardiovascular and mediastinum: Stable heart size. Lungs and pleural spaces: Low lung volumes. Left basilar atelectasis. No sign of pleural effusion. No pneumothorax. Bones and soft tissues: No significant findings. IMPRESSION: Left basilar atelectasis. Dictated by Everardo Pereira MD @ 04/01/2022 9:56:09 PM (Electronically Signed) Assessment and Plan Assessment and plan (1) COVID-19: Status: Acute (2) Weakness: Status: Acute (3) Dehydration: Status: Acute (4) Anticoagulation adequate: Status: Acute (5) Paroxysmal atrial fibrillation: Status: Chronic (6) Heart failure with preserved ejection fraction: Status: Chronic (7) Coronary artery disease: Status: Chronic (8) Hypertension: Status: Chronic (9) Diabetes mellitus type 2 in obese: Problem comment: Diagnosed 1989, severe neuropathy, proliferative retinopathy, bilateral vitrectomy, Charcot foot on the left in 2011, retinal exam stable in 2012 Status: Chronic (10) Hyperlipidemia: Status: Chronic Plan Covid 19 infection, covid vaccination yesterday. Symptomatic with weakness, nausea, diarrhea, dehydration. Symptoms resolved. Not requiring oxygen (was briefly placed on oxygen via nasal cannula in the emergency department, but this was quickly discontinued). No chest pain or shortness of breath. Multiple chronic medical issues that are stable, on Xarelto for paroxysmal atrial fibrillation which precludes the use of paxlovid. Will do 3 days of Remdesivir. Patient received first dose of remdesivir here prior to discharge. I have set up 2 doses of Remdesivir for him as an outpatient over the next 2 days for a total of 3 days of Remdesivir.
--- NOTE | 2022-04-02 14:55 | PC.NURSE ---
Pt. currently receiving 1st dose of Remdesivir and with
--- NOTE | 2022-04-02 14:56 | PC.NURSE ---
Pt. currently receiving 1st dose of Remdesivir and will be discharged later this afternoon/evening and receive subsequent Remdesivir doses outpatient. Fact Sheet for Patients And Parent/Caregivers Emergency Use Authorization (EUA) Of Remdesivir For Coronavirus Disease 2019 (COVID-19) given to patient.
[2022-04-02 15:34] VITALS: BP 150/82; PULSE 65; RESP 18; O2SAT 95
--- NOTE | 2022-04-02 16:43 | PC.NURSE ---
Discharge 1620- Patient is given discharge instructions verbally and in print. All questions answered. IV left in place and covered with tubigrip as patient will be returning in the AM for IV remdesivir. He leaves with all belongings via wheelchair and is ambulatory. 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
== END 2022-04-02 16:20 | disposition home or self-care (01) ==
LOC: ED 21:27 → MEDSURG 23:39
PROVIDERS: Admitting Provider Internal Medicine; Emergency Provider Family Medicine; PCP Family Medicine; Visit Provider Internal Medicine
DX: U07.1 COVID-19 (principal); E86.0 Dehydration; E78.5 Hyperlipidemia, unspecified; E11.69 Type 2 diabetes mellitus with other specified complication; E66.9 Obesity, unspecified; Z68.36 Body mass index [BMI] 36.0-36.9, adult; I50.30 Unspecified diastolic (congestive) heart failure; I25.10 Atherosclerotic heart disease of native coronary artery without angina pectoris; I11.0 Hypertensive heart disease with heart failure; I48.0 Paroxysmal atrial fibrillation; G47.30 Sleep apnea, unspecified; R19.7 Diarrhea, unspecified; G62.9 Polyneuropathy, unspecified; Z79.01 Long term (current) use of anticoagulants; Z79.84 Long term (current) use of oral hypoglycemic drugs; R11.0 Nausea; R53.1 Weakness; R05.9 Cough, unspecified; R68.83 Chills (without fever)
CPT/HCPCS: 36415; 71045; 80048; 80076; 81001; 82803; 83735; 83880; 85025; 85610; 86140; 87040; 87426; 87635; 94761; 96361; 96365; 96375; 99284; 99285; A9270; G0378; J1100; J2405; J3475; J7030; J7050

== ENCOUNTER 2023-05-14 14:00 | Outpatient (RCR) | payer MEDICARE, SELFPAY | END 2023-07-17 15:10 | disposition home or self-care (01) | PROVIDERS: PCP Family Medicine; Visit Provider Family Medicine | DX: R26.9 Unspecified abnormalities of gait and mobility (principal); R26.81 Unsteadiness on feet; Z51.89 Encounter for other specified aftercare | CPT/HCPCS: 97110; 97112; 97162 ==

== ENCOUNTER 2023-10-20 12:47 | Outpatient (CLI) | payer MEDICARE, BC, SELFPAY | END 2023-10-20 12:48 | disposition home or self-care (01) | LOC: WOUND 12:49 | PROVIDERS: PCP Family Medicine; Referring Provider Family Medicine; Visit Provider Nurse Practitioner Family | DX: E11.621 Type 2 diabetes mellitus with foot ulcer (principal); L97.522 Non-pressure chronic ulcer of other part of left foot with fat layer exposed; I73.9 Peripheral vascular disease, unspecified; I89.0 Lymphedema, not elsewhere classified; Z79.84 Long term (current) use of oral hypoglycemic drugs | CPT/HCPCS: 11042; G0463 ==

== ENCOUNTER 2023-10-24 13:40 | Outpatient (CLI) | payer MEDICARE, BC, SELFPAY ==
--- NOTE | 2023-10-24 14:00 | US_ITS ---
Patient: CLEO PERES Facility:?[facility] Patient ID:?[id number] Site Patient ID:?[id number]. Site :?[id number] Study:?US-Extremity Bilateral REINALDO BILATERAL-10/24/2023 4:41:00 PM Ordering Physician:?ALTAF CARBAJAL CNP Final Report: INDICATION: Nonhealing wounds. COMPARISON: None available COMMENT: Ultrasound examination of the arterial supply of the lower extremities bilaterally was performed using real-time huff scale imaging (B mode 2D), color flow Doppler and spectral analysis. Right lower extremity: Satisfactory inflow with peak systolic velocity of 85 centimeters/second in the common femoral artery with triphasic waveforms. Appropriate diminution of peak systolic velocity through the superior femoral artery, with triphasic waveforms. Less than 30 percent increased peak systolic velocity in the mid right femoral artery, 1-19 percent stenosis, triphasic waveform. Appropriate diminution of peak systolic velocity through the popliteal artery with triphasic waveform There is markedly elevated peak systolic velocity in the right posterior tibial artery of 374 centimeters/second with triphasic waveform, indicating 50-75 percent stenosis. The anterior tibial artery has appropriate diminution of peak systolic velocity with biphasic waveform There is very low peak systolic velocity in the right dorsalis pedis artery of 10 centimeters per 2nd with monophasic waveform. There is appropriate termination of peak systolic velocity in the peroneal artery with monophasic waveform. On the left, there is satisfactory flow, peak systolic velocity in the common femoral artery 73 centimeters/second with triphasic waveform. There is less than 30 percent increased peak systolic velocity with preservation of triphasic waveforms in the proximal and mid femoral artery, 1-19 percent stenosis There is appropriate diminution of peak systolic velocity into the popliteal artery with biphasic waveform. There is markedly increased peak systolic velocity in the left posterior tibial artery of 424 centimeters/second with triphasic waveform, indicating greater than 75 percent stenosis. There is less than 30 percent increased peak systolic velocity in the anterior tibial artery, 1-19 percent stenosis, with triphasic waveform. There is appropriate diminution of peak systolic velocity in the left dorsalis pedis artery with monophasic waveform. There is low velocity in the left peroneal artery of 10 centimeters/second with monophasic waveform. IMPRESSION: 50-75 percent stenosis of the right posterior tibial artery. Very low flow velocity in the right dorsalis pedis artery suggesting upstream stenosis, but no distinct stenosis seen in the anterior tibial artery. Greater than 75 percent stenosis of the left posterior tibial artery. Dictated by Richard Barth MD @ 10/25/2023 12:27:02 PM Signed by:?Richard Barth MD @10/25/2023 12:27:02 PM (Electronic Signature)
== END 2023-10-24 13:41 | disposition home or self-care (01) ==
LOC: US 13:40
PROVIDERS: PCP Family Medicine; Visit Provider Nurse Practitioner Family
DX: L97.522 Non-pressure chronic ulcer of other part of left foot with fat layer exposed (principal); I70.203 Unspecified atherosclerosis of native arteries of extremities, bilateral legs
CPT/HCPCS: 93926

== ENCOUNTER 2023-10-27 14:37 | Outpatient (CLI) | payer MEDICARE, BC, SELFPAY | END 2023-10-27 14:38 | disposition home or self-care (01) | LOC: WOUND 14:37 | PROVIDERS: PCP Family Medicine; Visit Provider Nurse Practitioner Family | DX: E11.621 Type 2 diabetes mellitus with foot ulcer (principal); L97.522 Non-pressure chronic ulcer of other part of left foot with fat layer exposed; I89.0 Lymphedema, not elsewhere classified; Z79.84 Long term (current) use of oral hypoglycemic drugs | CPT/HCPCS: 11042 ==

== ENCOUNTER 2023-11-10 15:19 | Outpatient (CLI) | payer MEDICARE, BC, SELFPAY | END 2023-11-10 15:20 | disposition home or self-care (01) | LOC: WOUND 15:19 | PROVIDERS: PCP Family Medicine; Visit Provider Nurse Practitioner Family | DX: E11.621 Type 2 diabetes mellitus with foot ulcer (principal); L97.522 Non-pressure chronic ulcer of other part of left foot with fat layer exposed; Z79.84 Long term (current) use of oral hypoglycemic drugs | CPT/HCPCS: 97597 ==

== ENCOUNTER 2023-11-12 10:00 | Outpatient (RCR) | payer MEDICARE, BC, SELFPAY ==
[2023-10-29 08:06] VITALS: BMI 34.2
[2023-10-29 11:06] VITALS: BMI 34.2
[2023-11-05 09:36] VITALS: BMI 34.2
[2023-11-12 11:20] VITALS: BMI 34.2
== END 2024-03-11 23:59 | disposition home or self-care (01) ==
PROVIDERS: PCP Family Medicine; Visit Provider Family Medicine
DX: I89.0 Lymphedema, not elsewhere classified (principal); Z51.89 Encounter for other specified aftercare
CPT/HCPCS: 97140; 97166

== ENCOUNTER 2023-11-24 15:15 | Outpatient (CLI) | payer MEDICARE, BC, SELFPAY | END 2023-11-24 15:16 | disposition home or self-care (01) | LOC: WOUND 15:15 | PROVIDERS: PCP Family Medicine; Visit Provider Nurse Practitioner Family | DX: E11.621 Type 2 diabetes mellitus with foot ulcer (principal); L97.528 Non-pressure chronic ulcer of other part of left foot with other specified severity; Z79.84 Long term (current) use of oral hypoglycemic drugs | CPT/HCPCS: G0463 ==

== ENCOUNTER → 2024-02-04 23:59 | Outpatient (RCR) | payer MEDICARE, SELFPAY ==
--- NOTE | 2022-04-03 14:09 | PC.NURSE ---
Pt. tolerated administration of Remdesivir well. Infusion ended at 1137 and patient remained for an hour of observation and 250ml NS was completed. Pt. asked for IV in right AC to be removed because it was uncomfortable and he did not like the location. Pt. was informed of the need for a new one and consented to obtaining another IV tomorrow when he returns for his next infusion. IV removed and was intact. Pt. denied any N/V, SOB and rated pain 0/10. VSS and Pt. was afebrile.
[2022-04-04 10:41] VITALS: TEMP 36.8
--- NOTE | 2022-04-04 12:50 | PC.NURSE ---
Discharge Note: Patient was here for a outpt abo. Infusion went without any difficulty. No complaints from patient. He was take per wheel chair to front entrance without difficulty.
== END | disposition home or self-care (01) ==
LOC: MS OUT 04-03 10:01
PROVIDERS: PCP Family Medicine; Visit Provider Internal Medicine
DX: U07.1 COVID-19 (principal)
CPT/HCPCS: 96365; 96366; 99211; J7050

== ENCOUNTER 2024-07-09 15:51 | Inpatient (IN) | payer MEDICARE, BC, SELFPAY ==
[2024-07-09 16:01] VITALS: BP 195/116; PULSE 78; RESP 16; TEMP 36.7; O2SAT 99; BMI 33.2
--- NOTE | 2024-07-09 16:40 | CRLHL7_ITS ---
For Patients: As a result of the Century Cures Act, medical imaging exams and procedure reports are released immediately into your electronic medical record. You may view this report before your referring provider. If you have questions, please contact your health care provider. INDICATION: Fall. TECHNIQUE: CT head without contrast. COMPARISON: June 06, 2017. FINDINGS: CSF spaces: Within normal limits for age. Brain parenchyma and extra-axial spaces: Mild chronic white matter ischemic disease. The huff-white differentiation is normal. No sign of mass, hemorrhage, or midline shift. No extra-axial fluid collection. Skull base and calvarium: The visualized paranasal sinuses and mastoid air cells demonstrate no acute or significant findings. The visualized orbits are grossly unremarkable. No skull fractures. IMPRESSION: No acute intracranial abnormality. Please note that all CT scans at this facility use dose modulation, iterative reconstruction, and/or weight-based dosing when appropriate to reduce radiation dose to as low as reasonably achievable. Dictated by Everardo Pereira MD @ 07/09/2024 5:46:15 PM (Electronically Signed)
--- NOTE | 2024-07-09 16:40 | CRLHL7_ITS ---
For Patients: As a result of the Cures Act, medical imaging exams and procedure reports are released immediately into your electronic medical record. You may view this report before your referring provider. If you have questions, please contact your health care provider. Indication: Fall, injury. Technique: Right foot, 3 views. Comparison: None. Findings: Bones: Diffuse demineralization of the visualized bones. Alignment is normal. No fractures or bone lesions. Joint spaces: Diffuse moderate degenerative changes. Soft tissues: Diffuse soft tissue swelling throughout the foot.. Diffuse severe vascular calcifications. Impression: No acute fractures or dislocations identified. Moderate degenerative changes. Dictated by Phuc Owens MD @ 07/09/2024 6:07:29 PM (Electronically Signed)
--- NOTE | 2024-07-09 16:40 | CRLHL7_ITS ---
For Patients: As a result of the Cures Act, medical imaging exams and procedure reports are released immediately into your electronic medical record. You may view this report before your referring provider. If you have questions, please contact your health care provider. Indication: Fall, injury. Technique: Right ankle, 3 views. Comparison: None. Findings: Bones: Diffuse demineralization of the visualized bones. No acute osseous fracture is identified. Joint spaces: Moderate to severe degenerative changes.. Calcaneal spur is noted. Soft tissues: Severe vascular calcifications. Impression: No acute fractures or dislocations identified. Moderate to severe degenerative changes and severe vascular calcifications. Dictated by Phuc Owens MD @ 07/09/2024 6:02:48 PM (Electronically Signed)
--- NOTE | 2024-07-09 16:40 | CRLHL7_ITS ---
For Patients: As a result of the Century Cures Act, medical imaging exams and procedure reports are released immediately into your electronic medical record. You may view this report before your referring provider. If you have questions, please contact your health care provider. INDICATION: Fall COMPARISON: None. TECHNIQUE: Two radiographic view(s) of the right knee. FINDINGS: Diffuse osseous demineralization. No evident acute displaced fracture. No large effusion. Mild degenerative change. Severe atherosclerotic vascular calcifications. IMPRESSION: No evident acute displaced fracture. Dictated by Ranjan Hutchison MD @ 07/09/2024 6:03:08 PM (Electronically Signed)
--- NOTE | 2024-07-09 16:40 | CRLHL7_ITS ---
For Patients: As a result of the Cures Act, medical imaging exams and procedure reports are released immediately into your electronic medical record. You may view this report before your referring provider. If you have questions, please contact your health care provider. INDICATION: Trauma. TECHNIQUE: CT cervical spine without contrast. COMPARISON: None. FINDINGS: Vertebrae: Postsurgical changes involving C4 to C6. Alignment is normal. There are no fractures or suspicious bony lesions. Discs and facet joints: There are diffuse degenerative changes in the disc spaces and facet joints. Extraspinal findings: Paraspinous soft tissues are unremarkable. IMPRESSION: 1. No sign of acute injury. 2. Multilevel degenerative spondylosis. Please note that all CT scans at this facility use dose modulation, iterative reconstruction, and/or weight-based dosing when appropriate to reduce radiation dose to as low as reasonably achievable. Dictated by Everardo Pereira MD @ 07/09/2024 5:42:15 PM (Electronically Signed)
--- NOTE | 2024-07-09 17:34 | ED.GENADULT ---
HPI - General Adult General Date Seen: 07/09/24 Chief complaint: Extremity Pain/Injury, Lower Stated complaint: fell, hit head, leg pain Time Seen by Provider: 07/09/24 16:13 Source: patient Mode of arrival: ambulatory Limitations: no limitations History of Present Illness HPI narrative: Patient is a 68-year-old male presenting to the emergency department after a fall. He has diabetes, AFib on Xarelto, autonomic peripheral neuropathy presenting to the emergency department after a fall. He states he has high fall risk at baseline but today when he was going to a restaurant he tripped over carpet and injuring his right knee, foot, ankle. He also states he hit his head and feels like his neck is a little bit more sore than normal. And denies headache, vision changes, chest pain, shortness of breath. States there is no associated lightheadedness or dizziness before or after the fall. States most of his pain seems to be his right lower extremity. This feels like the pain is on the medial aspect of the left foot and going into the ankle and the lateral aspect of the knee. Denies any hip pain at this time. No other concerns noted. Related Data Home Medications ?Medication ?Instructions ?Recorded ?Confirmed ergocalciferol (vitamin D2) 1,250 50,000 unit PO DAILY 04/01/22 04/02/22 mcg (50,000 unit) capsule glipizide 5 mg tablet, extended 15 mg PO DAILY 04/01/22 04/02/22 release 24 hr lisinopril 10 1 tab PO DAILY 04/01/22 04/02/22 mg-hydrochlorothiazide 12.5 mg tablet metformin 500 mg tablet 1,000 mg PO BIDWM 04/01/22 04/02/22 metoprolol tartrate 50 mg tablet 50 mg PO BID 04/01/22 04/02/22 nitroglycerin 0.4 mg sublingual 0.4 mg sublingual Q5M PRN 04/01/22 04/02/22 tablet omeprazole 20 mg capsule,delayed 40 mg PO DAILY 04/01/22 04/02/22 release rivaroxaban 20 mg tablet (Xarelto) 20 mg PO DAILY@18 04/01/22 04/02/22 simvastatin 20 mg tablet 20 mg PO HS 04/01/22 04/02/22 albuterol sulfate 90 mcg/actuation 2 inh inhalation QID PRN 04/02/22 04/02/22 aerosol inhaler (Ventolin HFA) ascorbic acid (vitamin C) 500 mg 1 g PO DAILY 04/02/22 04/02/22 tablet calcium 600 mg (as 2 tab PO BID 04/02/22 04/02/22 carbonate)-vitamin D3 5 mcg (200 unit) tablet (Calcium 600 + D(3)) cetirizine 10 mg tablet (24Hour 10 mg PO DAILY PRN 04/02/22 04/02/22 Allergy) copper gluconate 2 mg tablet 4 mg PO DAILY 04/02/22 04/02/22 cyanocobalamin (vitamin B-12) 500 mcg PO DAILY 04/02/22 04/02/22 1,000 mcg tablet (Vitamin B-12) ferrous sulfate 325 mg (65 mg 325 mg PO BID 04/02/22 04/02/22 iron) tablet (Feosol) magnesium oxide 400 mg (241.3 mg 400 mg PO DAILY 04/02/22 04/02/22 magnesium) tablet multivitamin 1 tab PO DAILY 04/02/22 04/02/22 vitamin A 3,000 mcg (10,000 unit) 10,000 unit PO DAILY 04/02/22 04/02/22 capsule zinc sulfate 50 mg zinc (220 mg) 50 mg PO BID 04/02/22 04/02/22 capsule Allergies Allergy/AdvReac Type Severity Reaction Status Date / Time NSAIDS (Non-Steroidal AdvReac Verified 04/01/22 20:25 Anti-Inflamma a statin AdvReac Unknown Uncoded 04/01/22 20:25 Review of Systems Status of ROS: Reports: 10 or more systems reviewed and unremarkable except as noted in History and below [facility] Medical History Bile reflux gastritis ?K29.60 - Other gastritis without bleeding (ICD-10) Anticoagulation adequate ?Z79.01 - truck terminal manager (current) use of anticoagulants (ICD-10) Paroxysmal atrial fibrillation ?I48.0 - Paroxysmal atrial fibrillation (ICD-10) Heart failure with preserved ejection fraction ?I50.30 - Unspecified diastolic (congestive) heart failure (ICD-10) Bilateral kidney stones ?N20.0 - Calculus of kidney (ICD-10) Vitamin D insufficiency ?E55.9 - Vitamin D deficiency, unspecified (ICD-10) PADMINI (obstructive sleep apnea) ?G47.33 - Obstructive sleep apnea (adult) (pediatric) (ICD-10) Autonomic neuropathy ?G90.9 - Disorder of the autonomic nervous system, unspecified (ICD-10) Diabetic polyneuropathy ?E11.42 - Type 2 diabetes mellitus with diabetic polyneuropathy (ICD-10) Coronary artery disease ?I25.10 - Atherosclerotic heart disease of [place] coronary artery without angina pectoris (ICD-10) Anxiety state ?F41.1 - Generalized anxiety disorder (ICD-10) History of dysthymic disorder ?Z86.59 - Personal history of other mental and behavioral disorders (ICD-10) Chronic venous insufficiency ?I87.2 - Venous insufficiency (chronic) (peripheral) (ICD-10) Benign neoplasm of colon ?D12.6 - Benign neoplasm of colon, unspecified (ICD-10) Morbid obesity ?E66.01 - Morbid (severe) obesity due to excess calories (ICD-10) Anemia of chronic disease ?D63.8 - Anemia in other chronic diseases classified elsewhere (ICD-10) Depressive disorder ?F32.A - Depression, unspecified (ICD-10) Chronic kidney disease ?N18.9 - Chronic kidney disease, unspecified (ICD-10) Allergic rhinitis ?J30.9 - Allergic rhinitis, unspecified (ICD-10) Myocardial infarction ?I21.9 - Acute myocardial infarction, unspecified (ICD-10) Hypertension ?I10 - Essential (primary) hypertension (ICD-10) Hyperlipidemia ?E78.5 - Hyperlipidemia, unspecified (ICD-10) Diabetes mellitus type 2 in obese ?E11.69 - Type 2 diabetes mellitus with other specified complication (ICD-10) ?E66.9 - Obesity, unspecified (ICD-10) Surgical History H/O vitrectomy ?Z98.890 - Other specified postprocedural states (ICD-10) S/P cholecystectomy ?Z90.49 - Acquired absence of other specified parts of digestive tract (ICD-10) History of bilateral YAG laser iridotomy ?Z98.890 - Other specified postprocedural states (ICD-10) H/O laminectomy ?Z98.890 - Other specified postprocedural states (ICD-10) H/O cataract extraction ?Z98.49 - Cataract extraction status, unspecified eye (ICD-10) History of carpal tunnel release ?Z98.890 - Other specified postprocedural states (ICD-10) H/O heart artery stent ?Z95.5 - Presence of coronary angioplasty implant and graft (ICD-10) History of appendectomy ?Z90.49 - Acquired absence of other specified parts of digestive tract (ICD-10) History of esophagogastroduodenoscopy (EGD) ?Z98.890 - Other specified postprocedural states (ICD-10) Social History Highest level of school completed/degree received: Associate degree: occupational, technical, vocational program Smoking Status: Never smoker Do you use any of these nicotine containing products: None Second hand tobacco smoke exposure: No How often do you have a drink containing alcohol: never How often do you have six or more drinks on one occasion: Never AUDIT-C Alcohol total score: 0 Non-prescribed substance use: denies use Caffeine: Yes (coke or mountain dew daily) service: No Exam Narrative: Exam Narrative: Const: Well-nourished, Well-developed, in mild distress Eyes: PERRL, no conjunctival injection, and symmetrical lids HENT: Atraumatic external nose and ears. Moist mucous membranes. Neck: Symmetric, trachea midline, No thyromegaly. CVS: RRR, No murmurs or gallops. Peripheral pulses 2+ and equal in all extremities RESP: Unlabored respiratory effort. Clear to auscultation bilaterally. GI: Nontender/Nondistended, No rebound or guarding. MSK:Extremities w/o deformity, Normal Active ROM, mild tenderness to right knee in the lateral aspect. Mild midline cervical tenderness around C5 Skin: Warm, Dry. No rashes or lesions. Neuro: Normal Muscle tone, No focal neurological deficits. Psych: Awake, Alert, & Oriented x3. Appropriate mood and affect. Const: Vital Signs, click to edit/add: Vital Signs - 24 hr 07/09/24 16:01 07/09/24 18:03 Temperature 98.0 F Pulse Rate [Pulse Oximeter] 78 67 Respiratory Rate 16 18 Blood Pressure [Ri ght Upper Arm] 195/116 H 167/92 H Pulse Oximetry 99 99 Oxygen Delivery Me thod Room Air Room Air Course Vital Signs Vital signs: Initial Vital Signs Temperature 98.0 F 07/09/24 16:01 Temperature Source Temporal Artery Scan 07/09/24 16:01 Pulse Rate 78 07/09/24 16:01 Respiratory Rate 16 07/09/24 16:01 Blood Pressure 195/116 H 07/09/24 16:01 Blood Pressure Mean 142 H 07/09/24 16:01 Blood Pressure Position Sitting 07/09/24 16:01 Pulse Oximetry 99 07/09/24 16:01 Oxygen Delivery Method Room Air 07/09/24 16:01 Vital Signs Temperature 98.0 F 07/09/24 16:01 Pulse Rate 78 07/09/24 16:01 Respiratory Rate 16 07/09/24 16:01 Blood Pressure 195/116 H 07/09/24 16:01 Pulse Oximetry 99 07/09/24 16:01 Oxygen Delivery Method Room Air 07/09/24 16:01 Temperature 98.0 F 07/09/24 16:01 Pulse Rate 67 07/09/24 18:03 Respiratory Rate 18 07/09/24 18:03 Blood Pressure 167/92 H 07/09/24 18:03 Pulse Oximetry 99 07/09/24 18:03 Oxygen Delivery Method Room Air 07/09/24 18:03 Medical Decision Making MDM Narrative Medical decision making narrative: Patient is a mL 8-year-old male presenting to the emergency department after a fall. There is no associated syncope and dizziness causing the fall and sounds like it was a mechanical fall in nature. Does states he has pain to his right knee, foot, ankle, calf. No pain to his kaba. I was palpating his foot and ankle for pain but he states difficult from the say is tender due to his neuropathy. Will do x-rays of the right knee, ankle, foot. Since he hit his head I will also CT is head and cervical spine. Imaging return initially showing no concerning abnormalities. Tried put him in an Gamaliel wrap to help with pain but he was still having quite a bit pain in the mid kaba. This is the only spot that was not x-rayed and was decided he would like an x-ray done. X-ray was done and showed no abnormalities at this main complaint of pain but it did show possible tibial plateau fracture consistent with where his knee pain is. Due to this a CT will be ordered. CT shows a minimally displaced acute fracture of the lateral tibial plateau with extension to the lateral tibial spine minimal chigger surface depression. There is also an intra-articular loose body. I did speak to the on-call ortho PA recommends knee immobilizer and toe-touch weight-bearing. The patient and his were not sure he will be able to manage take this at home as he is at baseline pretty unstable. The usable of lift assist at home and typically needs his for it. He tries to move around as the as possible when she is not home as he is a high risk for fall. Do this I think is in his best interest to be admitted to the hospital. He is agreeable to this plan. I spoke to the hospitalist who accepted him for admission. CBC and BMP were ordered. Imaging Data CT scan cervical spine: Attestation: I have reviewed the pertinent imaging results. Radiologist's impression: 1. No sign of acute injury. 2. Multilevel degenerative spondylosis. Please note that all CT scans at this facility use dose modulation, iterative reconstruction, and/or weight-based dosing when appropriate to reduce radiation dose to as low as reasonably achievable. Dictated by Everardo Pereira MD @ 07/09/2024 5:42:[address] scan head: Attestation: I have reviewed the pertinent imaging results. Radiologist's impression: No acute intracranial abnormality. Please note that all CT scans at this facility use dose modulation, iterative reconstruction, and/or weight-based dosing when appropriate to reduce radiation dose to as low as reasonably achievable. Dictated by Everardo Pereira MD @ 07/09/2024 5:46:15 PM Knee x-ray: Attestation: I have reviewed the pertinent imaging results. Radiologist's impression: No evident acute displaced fracture. Dictated by Ranjan Hutchison MD @ 07/09/2024 6:03:08 PM Ankle x-ray: Attestation: I have reviewed the pertinent imaging results. Radiologist's impression: No acute fractures or dislocations identified. Moderate to severe degenerative changes and severe vascular calcifications. Dictated by Phuc Owens MD @ 07/09/2024 6:02:48 PM Foot x-ray: Attestation: I have reviewed the pertinent imaging results. Radiologist's impression: No acute fractures or dislocations identified. Moderate degenerative changes. Dictated by Phuc Owens MD @ 07/09/2024 6:07:29 PM Tib/fib x-ray: Attestation: I have reviewed the pertinent imaging results. Radiologist's impression: Subtle cortical irregularity of the lateral tibial spine, which could represent a nondisplaced tibial plateau fracture. Consider CT for further evaluation, as clinically indicated. Dictated by Luis Jaimes MD @ 07/09/2024 7:52:[address]: Attestation: I have reviewed the pertinent imaging results. Radiologist's impression: 1. Minimally displaced acute fracture of the lateral tibial plateau with extension to the lateral tibial spine and minimal articular surface depression. Displaced fracture fragment versus intra-articular loose body measuring 0.5 cm within the lateral joint space. 2. Prominent lipohemarthrosis. 3. 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 Please note that all CT scans at this facility use dose modulation, iterative reconstruction, and/or weight-based dosing when appropriate to reduce radiation dose to as low as reasonably achievable. Dictated by Mayur Patterson MD @ 07/09/2024 9:06:45 PM Discharge Plan Discharge Clinical Impression: Closed fracture of tibial plateau Qualifiers: Encounter type: initial encounter Laterality: right Qualified Code(s): S82.141A - Displaced bicondylar fracture of right tibia, initial encounter for closed fracture Patient Disposition: Home, Self-Care Condition: Stable Additional Instructions: Use knee immobilizer when ambulating. Activity Level: Toe Touch Wt Bearing Prescriptions: No Action metformin 500 mg tablet 1,000 mg PO BIDWM glipizide 5 mg tablet extended release 24hr 15 mg PO DAILY simvastatin 20 mg tablet 20 mg PO HS metoprolol tartrate 50 mg tablet 50 mg PO BID nitroglycerin 0.4 mg tablet, sublingual 0.4 mg sublingual Q5M PRN Patient Comments: ONE TABLET UNDER TONGUE NEEDED FOR CHEST PAIN omeprazole 20 mg capsule,delayed release(DR/EC) 40 mg PO DAILY Patient Comments: TAKE 2 CAPSULES BY MOUTH DAILY ergocalciferol (vitamin D2) 1,250 mcg (50,000 unit) capsule 50,000 unit PO DAILY Patient Comments: TAKE 1 CAPSULE BY MOUTH DAILY AFTER BARIATRIC SURGERY lisinopril-hydrochlorothiazide 10-12.5 mg tablet 1 tab PO DAILY Patient Comments: TAKE 1 TABLET BY MOUTH EVERY DAY Xarelto 20 mg tablet 20 mg PO DAILY@18 albuterol sulfate [Ventolin HFA] 90 mcg/actuation HFA aerosol inhaler 2 inh inhalation QID PRN ascorbic acid (vitamin C) 500 mg tablet 1 g PO DAILY calcium carbonate-vitamin D3 [Calcium 600 + D(3)] 600 mg-5 mcg (200 unit) tablet 2 tab PO BID cetirizine [24Hour Allergy] 10 mg tablet 10 mg PO DAILY PRN copper gluconate 2 mg tablet 4 mg PO DAILY cyanocobalamin (vitamin B-12) [Vitamin B-12] 1,000 mcg tablet 500 mcg PO DAILY ferrous sulfate [Feosol] 325 mg (65 mg iron) tablet 325 mg PO BID magnesium oxide 400 mg (241.3 mg magnesium) tablet 400 mg PO DAILY multivitamin Tablet 1 tab PO DAILY vitamin A 10,000 unit capsule 10,000 unit PO DAILY zinc sulfate 50 mg zinc (220 mg) capsule 50 mg PO BID Follow Up/Referrals: Domingo Sheffield MD [Primary Care Provider] - Stand Alone Forms: [facility] Info Instructions
[2024-07-09 18:03] VITALS: BP 167/92; PULSE 67; RESP 18; O2SAT 99
--- NOTE | 2024-07-09 18:22 | CRLHL7_ITS ---
For Patients: As a result of the Century Cures Act, medical imaging exams and procedure reports are released immediately into your electronic medical record. You may view this report before your referring provider. If you have questions, please contact your health care provider. Indication: Fall. Technique: Right tibia and fibula 4 views. Comparison: Right knee radiographs from the same day. Findings: There is subtle cortical irregularity of the lateral tibial spine, which could represent a nondisplaced tibial plateau fracture. Small knee joint effusion with possible fat fluid level. No other fracture identified. Alignment is normal. The joint spaces are otherwise preserved. Mild degenerative changes of the tibiotalar joint. Mild tricompartment degenerative changes of the knee. Extensive severe vascular calcifications. Impression: Subtle cortical irregularity of the lateral tibial spine, which could represent a nondisplaced tibial plateau fracture. Consider CT for further evaluation, as clinically indicated. Dictated by Luis Jaimes MD @ 07/09/2024 7:52:31 PM (Electronically Signed)
--- NOTE | 2024-07-09 20:00 | CRLHL7_ITS ---
For Patients: As a result of the Century Cures Act, medical imaging exams and procedure reports are released immediately into your electronic medical record. You may view this report before your referring provider. If you have questions, please contact your health care provider. INDICATION: Lateral right knee pain with radiographs concerning for tibial plateau fracture. TECHNIQUE: Multiplanar CT examination of the right knee was performed without the use of intravenous contrast. COMPARISON: Right knee radiographs 07/09/2024. FINDINGS: Acute appearing minimally displaced fracture of the lateral tibial plateau with fracture lines extending medially to the lateral tibial spine. There is minimal articular surface depression of the lateral tibial plateau with intra-articular fracture fragment versus loose body measuring 0.5 cm laterally (coronal image 33). Additional lateral tibial plateau fracture line anteriorly extends inferiorly approximately 3 cm. No additional fracture is appreciated. No dislocation. Prominent lipohemarthrosis. Marginal osteophytes are noted within all 3 joint compartments without significant joint space narrowing on this nonweightbearing examination. Multiple intra-articular bodies are noted posteriorly with largest measuring up to 1.1 cm. Prominent superficial soft tissue edema most notable anteriorly. Prominent atherosclerotic vascular calcifications. There is fatty infiltration of visualized musculature. IMPRESSION: 1. Minimally displaced acute fracture of the lateral tibial plateau with extension to the lateral tibial spine and minimal articular surface depression. Displaced fracture fragment versus intra-articular loose body measuring 0.5 cm within the lateral joint space. 2. Prominent lipohemarthrosis. 3. 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 Please note that all CT scans at this facility use dose modulation, iterative reconstruction, and/or weight-based dosing when appropriate to reduce radiation dose to as low as reasonably achievable. Dictated by Mayur Patterson MD @ 07/09/2024 9:06:45 PM (Electronically Signed)
--- NOTE | 2024-07-09 22:33 | PC.NURSE ---
Pt in w/c to med surg for admission. Noted knee immobilizer on right knee. Pt declines taking clothes off as he states I even wear golves at night with an electric blanket. Took pt pants off noting asia wrap and lower leg. pt uses cane but with much difficulty. Also has special shoes. I was down stairs for rehab a couple times and I weqr diapers for incontinence.
--- NOTE | 2024-07-09 22:38 | P.IMHP_ITS ---
Hospitalist- H&P: RAE History of Present Illness Date Seen: 07/09/24 Chief complaint: fell, hit head, leg pain Narrative: Loki Vernon is a 68 year old man who presents to the [facility] Emergency Department on 07/09/2020 for with complaint of right knee pain radiating down to the foot since he sustained a fall around 3:00 p.m. today. He was in his usual state of health up until that fall. His usual state of health he is complex and precarious for various reasons. Focusing simply on his unstable gait, he has a unstable gait possibly due to multiple etiologies including peripheral neuropathy from diabetes mellitus, autonomic neuropathy, and he indicates he has a history of cervical spinal stenosis now status post surgical decompression and also history of of lumbar spinal stenosis. Additionally he has bilateral diabetic Charcot feet. Be that as it may his ability to ambulate is rather limited at baseline and he ordinarily walks with a cane or walker. In his home he often sits on a roller chair to scoot himself around due to his fear of falling given his multiple prior falls in the past. Today he was at a restaurant and as he was walking out he tripped over the carpet that was rolled over slightly. Fell onto his right knee. Has had right knee pain radiating down to his toe since then. Believes he did strike his head albeit gently and has had no other discomforts or pains aside from right knee pain radiating down to his toes. Is chronically anticoagulated. Given his baseline unstable gait and now with this new right knee pain the presents to the emergency department for further assessment. Various x-rays obtained including of the right knee, right tib-fib, foot and CT scan of the knee, head, and cervical spine. Main finding is a tibial plateau fracture on the right. CT scan of the knee demonstrates the following: Minimally displaced acute fracture of the lateral tibial plateau with extension to the lateral tibial spine and minimal articular surface depression. Displaced fracture fragment versus intra-articular loose body measuring 0.5 cm within the lateral joint space. Our physician in the emergency department spoke with the on-call orthopedic surgeon who indicated this is a nonsurgical problem. Recommended knee immobilizer placement and toe-touch weight-bearing only on the affected right lower extremity. Unfortunately given the patient's unstable gait in the 1st place this is not readily achievable by the patient. Thus he is not able to be safely discharged home until such time as we have safer plan and recommendations for him in place. Hence he is admitted for observation at this time with orthopedic surgery consultation, physical therapy consultation, and Occupational therapy consultation. Review of Systems Status of ROS: Reports: 6 or more systems reviewed and unremarkable except as noted in History and below [facility] Medical History (Updated 07/09/24 @ 23:01 by Chad Luna MD) Gait instability ?R26.81 - Unsteadiness on feet (ICD-10) Charcot foot due to diabetes mellitus ?E11.610 - Type 2 diabetes mellitus with diabetic neuropathic arthropathy (ICD-10) Chronic ulcer of left foot due to diabetes mellitus ?E11.621 - Type 2 diabetes mellitus with foot ulcer (ICD-10) ?L97.529 - Non-pressure chronic ulcer of other part of left foot with unspecified severity (ICD-10) Bile reflux gastritis ?K29.60 - Other gastritis without bleeding (ICD-10) Anticoagulation adequate ?Z79.01 - oil heaterman (current) use of anticoagulants (ICD-10) Paroxysmal atrial fibrillation ?I48.0 - Paroxysmal atrial fibrillation (ICD-10) Heart failure with preserved ejection fraction ?I50.30 - Unspecified diastolic (congestive) heart failure (ICD-10) Bilateral kidney stones ?N20.0 - Calculus of kidney (ICD-10) Vitamin D insufficiency ?E55.9 - Vitamin D deficiency, unspecified (ICD-10) PADMINI (obstructive sleep apnea) ?G47.33 - Obstructive sleep apnea (adult) (pediatric) (ICD-10) Autonomic neuropathy ?G90.9 - Disorder of the autonomic nervous system, unspecified (ICD-10) Diabetic polyneuropathy ?E11.42 - Type 2 diabetes mellitus with diabetic polyneuropathy (ICD-10) Coronary artery disease ?I25.10 - Atherosclerotic heart disease of [place] coronary artery without angina pectoris (ICD-10) Anxiety state ?F41.1 - Generalized anxiety disorder (ICD-10) History of dysthymic disorder ?Z86.59 - Personal history of other mental and behavioral disorders (ICD-10) Chronic venous insufficiency ?I87.2 - Venous insufficiency (chronic) (peripheral) (ICD-10) Benign neoplasm of colon ?D12.6 - Benign neoplasm of colon, unspecified (ICD-10) Morbid obesity ?E66.01 - Morbid (severe) obesity due to excess calories (ICD-10) Anemia of chronic disease ?D63.8 - Anemia in other chronic diseases classified elsewhere (ICD-10) Depressive disorder ?F32.A - Depression, unspecified (ICD-10) Chronic kidney disease ?N18.9 - Chronic kidney disease, unspecified (ICD-10) Allergic rhinitis ?J30.9 - Allergic rhinitis, unspecified (ICD-10) Myocardial infarction ?I21.9 - Acute myocardial infarction, unspecified (ICD-10) Hypertension ?I10 - Essential (primary) hypertension (ICD-10) Hyperlipidemia ?E78.5 - Hyperlipidemia, unspecified (ICD-10) Diabetes mellitus type 2 in obese ?E11.69 - Type 2 diabetes mellitus with other specified complication (ICD-10) ?E66.9 - Obesity, unspecified (ICD-10) Surgical History H/O vitrectomy ?Z98.890 - Other specified postprocedural states (ICD-10) S/P cholecystectomy ?Z90.49 - Acquired absence of other specified parts of digestive tract (ICD- 10) History of bilateral YAG laser iridotomy ?Z98.890 - Other specified postprocedural states (ICD-10) H/O laminectomy ?Z98.890 - Other specified postprocedural states (ICD-10) H/O cataract extraction ?Z98.49 - Cataract extraction status, unspecified eye (ICD-10) History of carpal tunnel release ?Z98.890 - Other specified postprocedural states (ICD-10) H/O heart artery stent ?Z95.5 - Presence of coronary angioplasty implant and graft (ICD-10) History of appendectomy ?Z90.49 - Acquired absence of other specified parts of digestive tract (ICD- 10) History of esophagogastroduodenoscopy (EGD) ?Z98.890 - Other specified postprocedural states (ICD-10) Social History Highest level of school completed/degree received: Associate degree: occupational, technical, vocational program Smoking Status: Never smoker Do you use any of these nicotine containing products: None Second hand tobacco smoke exposure: No How often do you have a drink containing alcohol: never How often do you have six or more drinks on one occasion: Never AUDIT-C Alcohol total score: 0 Non-prescribed substance use: denies use Caffeine: Yes (coke or mountain dew daily) service: No Meds Home Medications and Allergies Home Medications ?Medication ?Instructions ?Recorded ?Confirmed ?Type ergocalciferol (vitamin D2) 1,250 50,000 unit PO DAILY 04/01/22 04/02/22 History mcg (50,000 unit) capsule glipizide 5 mg tablet, extended 15 mg PO DAILY 04/01/22 04/02/22 History release 24 hr lisinopril 10 1 tab PO DAILY 04/01/22 04/02/22 History mg-hydrochlorothiazide 12.5 mg tablet metformin 500 mg tablet 1,000 mg PO BIDWM 04/01/22 04/02/22 History metoprolol tartrate 50 mg tablet 50 mg PO BID 04/01/22 04/02/22 History nitroglycerin 0.4 mg sublingual 0.4 mg sublingual Q5M PRN 04/01/22 04/02/22 History tablet omeprazole 20 mg capsule,delayed 40 mg PO DAILY 04/01/22 04/02/22 History release rivaroxaban 20 mg tablet (Xarelto) 20 mg PO DAILY@18 04/01/22 04/02/22 History simvastatin 20 mg tablet 20 mg PO HS 04/01/22 04/02/22 History albuterol sulfate 90 mcg/actuation 2 inh inhalation QID PRN 04/02/22 04/02/22 History aerosol inhaler (Ventolin HFA) ascorbic acid (vitamin C) 500 mg 1 g PO DAILY 04/02/22 04/02/22 History tablet calcium 600 mg (as 2 tab PO BID 04/02/22 04/02/22 History carbonate)-vitamin D3 5 mcg (200 unit) tablet (Calcium 600 + D(3)) cetirizine 10 mg tablet (24Hour 10 mg PO DAILY PRN 04/02/22 04/02/22 History Allergy) copper gluconate 2 mg tablet 4 mg PO DAILY 04/02/22 04/02/22 History cyanocobalamin (vitamin B-12) 500 mcg PO DAILY 04/02/22 04/02/22 History 1,000 mcg tablet (Vitamin B-12) ferrous sulfate 325 mg (65 mg 325 mg PO BID 04/02/22 04/02/22 History iron) tablet (Feosol) magnesium oxide 400 mg (241.3 mg 400 mg PO DAILY 04/02/22 04/02/22 History magnesium) tablet multivitamin 1 tab PO DAILY 04/02/22 04/02/22 History vitamin A 3,000 mcg (10,000 unit) 10,000 unit PO DAILY 04/02/22 04/02/22 History capsule zinc sulfate 50 mg zinc (220 mg) 50 mg PO BID 04/02/22 04/02/22 History capsule Allergies Allergy/AdvReac Type Severity Reaction Status Date / Time NSAIDS (Non-Steroidal AdvReac Verified 04/01/22 20:25 Anti-Inflamma a statin AdvReac Unknown Uncoded 04/01/22 20:25 Exam Narrative: Exam Narrative: Examined patient in the emergency department. He is able to stand on his feet while holding onto a walker or a grab bar but not able to do toe-touch weight-bearing only on the affected right side. Appears comfortable and in no acute distress with knee immobilizer on the right side. Vision and hearing are adequate. Alert and oriented x3. Friendly, articulate, cooperative. External auditory canals are clear tympanic membranes normal. Midline nasal septum. Moist buccal mucosa. Dentition in fair repair. Conjugate gaze. Cranial nerves 3-12 grossly normal. Neck is supple. Midline trachea. No head neck lymphadenopathy. Lungs are clear to auscultation without wheezing, rhonchi, or rales. Chest wall excursions are full. No CVA tenderness. Heart tones with regular rhythm, normal S1-S2, without gallop or rub. Soft systolic murmur noted. PMI not laterally displaced. Abdomen with active bowel sounds, soft, nontender. Obese abdomen. Advance trophic changes in upper extremities and lower extremities from obvious advanced neuropathy. Bilateral Charcot feet. Left foot with dressing in place due to chronic diabetic foot ulcer present since November 2023 which he has been working with various wound clinic staff to help resolve. Tells me it has improved substantially but is still open at this time. Decreased sensation awareness both feet and hands. Const: Vital Signs, click to edit/add: Vital Signs - 24 hr 07/09/24 16:01 07/09/24 18:03 Temperature 98.0 F Pulse Rate [Pulse Oximeter] 78 67 Respiratory Rate 16 18 Blood Pressure [Ri ght Upper Arm] 195/116 H 167/92 H Pulse Oximetry 99 99 Oxygen Delivery Me thod Room Air Room Air Hospitalist - H&P: Result Imaging Knee x-ray: Radiologist's impression: Right knee without obvious fracture Right tib-fib x-ray: Radiologist's impression: There is subtle cortical irregularity of the lateral tibial spine, which could represent a nondisplaced tibial plateau fracture. Small knee joint effusion with possible fat fluid level. No other fracture identified. Alignment is normal. The joint spaces are otherwise preserved. Mild degenerative changes of the tibiotalar joint. Mild tricompartment degenerative changes of the knee. Extensive severe vascular calcifications. Impression: Subtle cortical irregularity of the lateral tibial spine, which could represent a nondisplaced tibial plateau fracture. Consider CT for further evaluation, as clinically indicated. CT scan right knee: Radiologist's impression: 1. Minimally displaced acute fracture of the lateral tibial plateau with extension to the lateral tibial spine and minimal articular surface depression. Displaced fracture fragment versus intra-articular loose body measuring 0.5 cm within the lateral joint space. 2. Prominent lipohemarthrosis. 3. 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 Right foot x-ray: Radiologist's impression: No acute fractures or dislocations identified. Moderate degenerative changes. CT scan - head: Radiologist's impression: No acute intracranial abnormality. CT scan cervical spine: Radiologist's impression: 1. No sign of acute injury. 2. Multilevel degenerative spondylosis. Assessment and Plan Assessment and plan (1) Closed fracture of tibial plateau: Problem comment: - CT scan of right knee on 07/09/2024 demonstrates the followin. Minimally displaced acute fracture of the lateral tibial plateau with extension to the lateral tibial spine and minimal articular surface depression. Displaced fracture fragment versus intra-articular loose body measuring 0.5 cm within the lateral joint space. 2. Prominent lipohemarthrosis. 3. 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 - given patient's advanced gait instability due to multiple reasons, the initial plan is to admit patient to observation, apply knee immobilizer, work with PT and OT as well as Orthopedic surgery to achieve the recommendation orthopedic surgery recommended for toe-touch weight-bearing only on the affected right lower extremity. Did discuss with patient the possibility that he may need transitional care services before he can safely return home. We have yet to determine this after physical therapy occupational therapy and Orthopedic surgery assessed him and render their recommendations. Status: Acute (2) Gait instability: Status: Acute (3) Diabetic polyneuropathy: Status: Acute (4) Autonomic neuropathy: Problem comment: Diagnosis confirmed with tilt-table testing at [place] 2017 Status: Acute (5) Chronic ulcer of left foot due to diabetes mellitus: Status: Acute (6) Charcot foot due to diabetes mellitus: Status: Acute (7) Diabetes mellitus type 2 in obese: Problem comment: Diagnosed 1989, severe neuropathy, proliferative retinopathy, bilateral vitrectomy, Charcot foot on the left in 2010, retinal exam stable in 2011 -07/09/2024: Continue with supportive medications and add sliding scale insulin q.i.d. a.c. and at bedtime Status: Chronic (8) Paroxysmal atrial fibrillation: Status: Chronic (9) Anticoagulation adequate: Status: Acute (10) Coronary artery disease: Status: Chronic (11) Hypertension: Status: Chronic (12) Heart failure with preserved ejection fraction: Status: Chronic (13) Hyperlipidemia: Status: Chronic Plan 1. Await result of CBC and basic metabolic panel 2. Reviewed impression and plan with patient. 3. Answered his questions. 4. Patient agreeable with above stated plans and recommendations Total Time Spent Total Time Spent: 65 minutes
[2024-07-09 23:11] LABS: Basophils Absolute Auto 0.04 K/uL (0.00-0.30); Basophils Percent Auto 0.4 % (0.0-3.0); Eosinophils Absolute Auto 0.27 K/uL (0.00-0.50); Eosinophils Percent Auto 2.7 % (0.0-7.0); Hematocrit 33.4 % (37.0-53.0); Hemoglobin* 10.8 gm/dL (13.5-17.5); Immature Granulocytes Abs Auto 0.03 K/uL (0.00-0.30); Immature Granulocytes Pct Auto 0.3 %; Lymphocytes Percent Auto 13.1 % (20-44); Mean Corpuscular HGB Conc 32 gm/dL (32-36); Mean Corpuscular Hemoglobin 30 pg (26-34); Mean Corpuscular Volume 92 fL (80-100); Monocytes Percent Auto 6.9 % (0.0-11.0); Neutrophils Percent Auto 76.6 % (42.0-72.0); Platelet Count* 234 K/uL (140-440); RDW Coefficient of Variation % 14.3 % (11.5-15.5); Red Blood Count 3.63 m/uL (4.30-5.90); White Blood Count* 9.96 K/uL (4.50-11.00)
[2024-07-09 23:12] LABS: Slide Review Reflex No
[2024-07-09 23:23] LABS: Chloride* 108 mmol/L (96-114); Potassium* 3.9 mmol/L (3.6-5.1); Sodium* 139 mmol/L (135-149)
[2024-07-09 23:26] LABS: Anion Gap 5 mEq/L (7-15); Blood Urea Nitrogen* 14 mg/dL (7-30); Calcium* 8.6 mg/dL (8.4-10.6); Carbon Dioxide* 26 mmol/L (20-32); Creatinine* 1.7 mg/dL (0.5-1.5); Est. Creatinine Clearance* 46.92; Estimated Glomerular Filt Rate 44 ml/min; Glucose* 111 mg/dL (60-115)
[2024-07-10] VITALS (8 sets, daily range): BP systolic 115–177; BP diastolic 46–87; PULSE 61–84; RESP 16–20; TEMP 36.7–37.1; O2SAT 96–99; BMI 34.3
--- NOTE | 2024-07-10 07:02 | PC.NURSE ---
End of shift [id number] ? Pt arrived to floor from ED at approximately 2230. Pt alert, oriented, cooperative. Tolerating RA and regular diet/fluids. Up with knee mobilizer, walker/gait belt and 1-2 assist. Pt reports feeling ?lightheaded? when ambulating at baseline. Observed to stand with assistance but pt struggled to ambulate and pivot and was noted to become fatigued with position change. Bedside commode and urinal used. Pt reported pain in R knee that increased with weight bearing. Refused pain medication options offered by RN. ?Pt appears to be resting in bed comfortably with call light within reach. ?
[2024-07-10] MEDS: OMEPRAZOLE 20 MG CAPSULE DR 40 MG PO (07:58)
[2024-07-10] MEDS: METFORMIN 500 MG TABLET 1000 MG PO ×2 (07:58→17:44)
[2024-07-10] MEDS: INSULIN ASPART 100 UNIT/ML SUBCUT ×3 (07:58→21:26)
[2024-07-10] MEDS: hydroCHLOROthiazide 12.5 MG CAPSULE PO (09:00)
[2024-07-10] MEDS: MAGNESIUM OXIDE 400 MG TABLET PO (09:00)
[2024-07-10] MEDS: METOPROLOL TARTRATE 50 MG TABLET PO ×2 (09:00→21:25)
[2024-07-10] MEDS: glipiZIDE XL 5 MG TAB 15 MG PO (09:00)
--- NOTE | 2024-07-10 11:07 | PM.ORCN ---
History of Present Illness HPI Date Seen: 07/10/24 Requesting physician: Chda Luna Chief complaint: fell, hit head, leg pain Narrative: Jayme is 68-year-old male past medical history significant for diabetes, peripheral neuropathy, and AFib for which she is on Xarelto. He presented to the emergency department yesterday after sustaining a ground level fall in which she injured his right knee and distal lower extremity. Following the injury he developed pain in his knee and foot. He denies any other injuries. Radiographic imaging was performed which revealed a minimally displaced right tibial plateau fracture. Due to difficulty ambulating and abiding weight-bearing restrictions he was admitted to the hospitalist service and is awaiting placement. Orthopedics was consulted to evaluate his right tibial plateau fracture. This morning, he complains of pain in the lateral aspect of his right knee as well as diffuse foot pain. Pain is currently well controlled. [facility] Medical History (Updated 07/09/24 @ 23:01 by Chad Luna MD) Gait instability ?R26.81 - Unsteadiness on feet (ICD-10) Charcot foot due to diabetes mellitus ?E11.610 - Type 2 diabetes mellitus with diabetic neuropathic arthropathy (ICD-10) Chronic ulcer of left foot due to diabetes mellitus ?E11.621 - Type 2 diabetes mellitus with foot ulcer (ICD-10) ?L97.529 - Non-pressure chronic ulcer of other part of left foot with unspecified severity (ICD-10) Bile reflux gastritis ?K29.60 - Other gastritis without bleeding (ICD-10) Anticoagulation adequate ?Z79.01 - assisted (current) use of anticoagulants (ICD-10) Paroxysmal atrial fibrillation ?I48.0 - Paroxysmal atrial fibrillation (ICD-10) Heart failure with preserved ejection fraction ?I50.30 - Unspecified diastolic (congestive) heart failure (ICD-10) Bilateral kidney stones ?N20.0 - Calculus of kidney (ICD-10) Vitamin D insufficiency ?E55.9 - Vitamin D deficiency, unspecified (ICD-10) PADMINI (obstructive sleep apnea) ?G47.33 - Obstructive sleep apnea (adult) (pediatric) (ICD-10) Autonomic neuropathy ?G90.9 - Disorder of the autonomic nervous system, unspecified (ICD-10) Diabetic polyneuropathy ?E11.42 - Type 2 diabetes mellitus with diabetic polyneuropathy (ICD-10) Coronary artery disease ?I25.10 - Atherosclerotic heart disease of knik coronary artery without angina pectoris (ICD-10) Anxiety state ?F41.1 - Generalized anxiety disorder (ICD-10) History of dysthymic disorder ?Z86.59 - Personal history of other mental and behavioral disorders (ICD-10) Chronic venous insufficiency ?I87.2 - Venous insufficiency (chronic) (peripheral) (ICD-10) Benign neoplasm of colon ?D12.6 - Benign neoplasm of colon, unspecified (ICD-10) Morbid obesity ?E66.01 - Morbid (severe) obesity due to excess calories (ICD-10) Anemia of chronic disease ?D63.8 - Anemia in other chronic diseases classified elsewhere (ICD-10) Depressive disorder ?F32.A - Depression, unspecified (ICD-10) Chronic kidney disease ?N18.9 - Chronic kidney disease, unspecified (ICD-10) Allergic rhinitis ?J30.9 - Allergic rhinitis, unspecified (ICD-10) Myocardial infarction ?I21.9 - Acute myocardial infarction, unspecified (ICD-10) Hypertension ?I10 - Essential (primary) hypertension (ICD-10) Hyperlipidemia ?E78.5 - Hyperlipidemia, unspecified (ICD-10) Diabetes mellitus type 2 in obese ?E11.69 - Type 2 diabetes mellitus with other specified complication (ICD-10) ?E66.9 - Obesity, unspecified (ICD-10) Surgical History H/O vitrectomy ?Z98.890 - Other specified postprocedural states (ICD-10) S/P cholecystectomy ?Z90.49 - Acquired absence of other specified parts of digestive tract (ICD-10) History of bilateral YAG laser iridotomy ?Z98.890 - Other specified postprocedural states (ICD-10) H/O laminectomy ?Z98.890 - Other specified postprocedural states (ICD-10) H/O cataract extraction ?Z98.49 - Cataract extraction status, unspecified eye (ICD-10) History of carpal tunnel release ?Z98.890 - Other specified postprocedural states (ICD-10) H/O heart artery stent ?Z95.5 - Presence of coronary angioplasty implant and graft (ICD-10) History of appendectomy ?Z90.49 - Acquired absence of other specified parts of digestive tract (ICD-10) History of esophagogastroduodenoscopy (EGD) ?Z98.890 - Other specified postprocedural states (ICD-10) Social History What is your current living situation?: I presently have a place to live Problems where you live: no known problems Problems where you live details: n/a In the past 12 months, utilities in danger of being shut off: no In past 12 months, lack of transportation kept you from medical appts, meetings, work, or getting things needed for daily living: no In the past 12 mos, have been you worried that your food would run out before you had money to buy more?: never true In the past 12 mos, the food you bought just didn't last and you didn't have money to buy more?: never true Highest level of school completed/degree received: Associate degree: occupational, technical, vocational program Smoking Status: Never smoker Do you use any of these nicotine containing products: None Second hand tobacco smoke exposure: No How often do you have a drink containing alcohol: never How often do you have six or more drinks on one occasion: Never AUDIT-C Alcohol total score: 0 Non-prescribed substance use: denies use Caffeine: No How often does anyone, including family, friends and others, physically hurt you: never How often does anyone, including family, friends and others, insult or talk down to you: never How often does anyone, including family, friends and others, threaten you with harm: never How often does anyone, including family, friends and others, scream or curse at you: never service: No Meds Home Medications and Allergies Home Medications ?Medication ?Instructions ?Recorded ?Confirmed ?Type glipizide 5 mg tablet, extended 15 mg PO DAILY 04/01/22 07/10/24 History release 24 hr lisinopril 10 1 tab PO DAILY 04/01/22 07/10/24 History mg-hydrochlorothiazide 12.5 mg tablet metoprolol tartrate 50 mg tablet 50 mg PO BID 04/01/22 07/10/24 History nitroglycerin 0.4 mg sublingual 0.4 mg sublingual Q5M PRN 04/01/22 07/10/24 History tablet omeprazole 20 mg capsule,delayed 40 mg PO DAILY 04/01/22 07/10/24 History release rivaroxaban 20 mg tablet (Xarelto) 20 mg PO DAILY@18 04/01/22 07/10/24 History simvastatin 20 mg tablet 20 mg PO HS 04/01/22 07/10/24 History albuterol sulfate 90 mcg/actuation 2 inh inhalation QID PRN 04/02/22 07/10/24 History aerosol inhaler (Ventolin HFA) ascorbic acid (vitamin C) 500 mg 1 g PO DAILY 04/02/22 07/10/24 History tablet calcium 600 mg (as 2 tab PO BID 04/02/22 07/10/24 History carbonate)-vitamin D3 5 mcg (200 unit) tablet (Calcium 600 + D(3)) cetirizine 10 mg tablet (24Hour 10 mg PO DAILY PRN 04/02/22 07/10/24 History Allergy) copper gluconate 2 mg tablet 4 mg PO DAILY 04/02/22 07/10/24 History ferrous sulfate 325 mg (65 mg 325 mg PO BID 04/02/22 07/10/24 History iron) tablet (Feosol) magnesium oxide 400 mg (241.3 mg 400 mg PO DAILY 04/02/22 07/10/24 History magnesium) tablet multivitamin 1 tab PO DAILY 04/02/22 07/10/24 History vitamin A 3,000 mcg (10,000 unit) 10,000 unit PO DAILY 04/02/22 07/10/24 History capsule zinc sulfate 50 mg zinc (220 mg) 50 mg PO BID 04/02/22 07/10/24 History capsule metformin 500 mg tablet,extended 500 mg PO BID 07/10/24 07/10/24 History release 24 hr Allergies Allergy/AdvReac Type Severity Reaction Status Date / Time NSAIDS (Non-Steroidal AdvReac Verified 04/01/22 20:25 Anti-Inflamma a statin AdvReac Unknown Uncoded 04/01/22 20:25 Ortho Exam Narrative Exam Narrative: General: Alert and oriented in no apparent distress. Musculoskeletal: Right lower extremity was examined. Moderate knee effusion but no warmth erythema. Knee range of motion was limited by pain. Mild tenderness to palpation over the lateral aspect of the knee. Negative Jg's and posterior drawer. No significant tenderness palpation of the foot or ankle. Sensation was decreased to light touch distally. EHL, tibialis anterior, gastrocnemius/soleus were intact. Foot was warm and well perfused with 1+ DP pulse. Const Vital Signs, click to edit/add: Vital Signs - 24 hr 07/09/24 16:01 07/09/24 18:03 07/10/24 00:49 Temperature 98.0 F Pulse Rate [Pulse Oximeter] 78 67 Respiratory Rate 16 18 Blood Pressure [Right Arm] Blood Pressure [Right Upper Arm] 195/116 H 167/92 H Pulse Oximetry 99 99 99 Oxygen Delivery Method Room Air Room Air Room Air 07/10/24 00:49 07/10/24 00:49 07/10/24 00:57 Temperature Pulse Rate [Pulse Oximeter] 84 84 Respiratory Rate 18 18 Blood Pressure [Right Arm] 115/64 115/64 Blood Pressure [Right Upper Arm] Pulse Oximetry 99 99 99 Oxygen Delivery Method Room Air Room Air Room Air 07/10/24 04:10 07/10/24 07:56 07/10/24 07:56 Temperature 98.1 F 98.3 F Pulse Rate [Pulse Oximeter] 69 71 Respiratory Rate 20 16 16 Blood Pressure [Right Arm] 144/54 H 158/49 H Blood Pressure [Right Upper Arm] Pulse Oximetry 97 96 96 Oxygen Delivery Method Room Air Room Air Room Air Results Labs Labs: Laboratory Results - last 48 hr 07/09/24 23:02 WBC 9.96 RBC 3.63 L Hgb 10.8 L Hct 33.4 L MCV 92 MCH 30 MCHC 32 RDW Coeff of Rama 14.3 Plt Count 234 Neut % (Auto) 76.6 H Lymph % (Auto) 13.1 L [place] % (Auto) 6.9 Eos % (Auto) 2.7 Baso % (Auto) 0.4 Neut # (Auto) 7.60 H Lymph # (Auto) 1.30 [place] # (Auto) 0.70 Eos # (Auto) 0.27 Baso # (Auto) 0.04 Abs Immat Gran (auto) 0.03 Imm/Tot Granulo (auto) 0.3 Sodium 139 Potassium 3.9 Chloride 108 Carbon Dioxide 26 Anion Gap 5 L BUN 14 Creatinine 1.7 H Estimated Creat Clear 46.92 Estimated GFR 44 Glucose 111 Calcium 8.6 Diagnostic results Additional Comments: X-rays and CT scan of right knee were reviewed. These demonstrate minimally displaced fracture of the lateral tibial plateau with minimal articular depression. Moderate tricompartmental degenerative changes. X-rays of right foot and ankle revealed diffuse moderate degenerative changes of the ankle and midfoot. No fractures acute osseous abnormalities. Assessment and Plan Assessment and plan (1) Closed fracture of tibial plateau: Problem comment: - CT scan of right knee on 07/09/2024 demonstrates the followin. Minimally displaced acute fracture of the lateral tibial plateau with extension to the lateral tibial spine and minimal articular surface depression. Displaced fracture fragment versus intra-articular loose body measuring 0.5 cm within the lateral joint space. 2. Prominent lipohemarthrosis. 3. 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 - given patient's advanced gait instability due to multiple reasons, the initial plan is to admit patient to observation, apply knee immobilizer, work with PT and OT as well as Orthopedic surgery to achieve the recommendation orthopedic surgery recommended for toe-touch weight-bearing only on the affected right lower extremity. Did discuss with patient the possibility that he may need transitional care services before he can safely return home. We have yet to determine this after physical therapy occupational therapy and Orthopedic surgery assessed him and render their recommendations. Status: Acute Total time spent: Total time spent is greater than 50% in coordination of care (as documented) at patient's floor/unit and/or counseling patient: (2) Gait instability: Status: Acute Total time spent: Total time spent is greater than 50% in coordination of care (as documented) at patient's floor/unit and/or counseling patient: (3) Diabetic polyneuropathy: Status: Acute Total time spent: Total time spent is greater than 50% in coordination of care (as documented) at patient's floor/unit and/or counseling patient: (4) Autonomic neuropathy: Problem comment: Diagnosis confirmed with tilt-table testing at [place] 2017 Status: Acute Total time spent: Total time spent is greater than 50% in coordination of care (as documented) at patient's floor/unit and/or counseling patient: (5) Chronic ulcer of left foot due to diabetes mellitus: Status: Acute Total time spent: Total time spent is greater than 50% in coordination of care (as documented) at patient's floor/unit and/or counseling patient: (6) Charcot foot due to diabetes mellitus: Status: Acute Total time spent: Total time spent is greater than 50% in coordination of care (as documented) at patient's floor/unit and/or counseling patient: (7) Diabetes mellitus type 2 in obese: Problem comment: Diagnosed 1989, severe neuropathy, proliferative retinopathy, bilateral vitrectomy, Charcot foot on the left in 2010, retinal exam stable in 2011 -07/09/2024: Continue with supportive medications and add sliding scale insulin q.i.d. a.c. and at bedtime Status: Chronic Total time spent: Total time spent is greater than 50% in coordination of care (as documented) at patient's floor/unit and/or counseling patient: (8) Paroxysmal atrial fibrillation: Status: Chronic Total time spent: Total time spent is greater than 50% in coordination of care (as documented) at patient's floor/unit and/or counseling patient: (9) Anticoagulation adequate: Status: Acute Total time spent: Total time spent is greater than 50% in coordination of care (as documented) at patient's floor/unit and/or counseling patient: (10) Coronary artery disease: Status: Chronic Total time spent: Total time spent is greater than 50% in coordination of care (as documented) at patient's floor/unit and/or counseling patient: (11) Hypertension: Status: Chronic Total time spent: Total time spent is greater than 50% in coordination of care (as documented) at patient's floor/unit and/or counseling patient: (12) Heart failure with preserved ejection fraction: Status: Chronic Total time spent: Total time spent is greater than 50% in coordination of care (as documented) at patient's floor/unit and/or counseling patient: (13) Hyperlipidemia: Status: Chronic Total time spent: Total time spent is greater than 50% in coordination of care (as documented) at patient's floor/unit and/or counseling patient: Plan Recommend non operative management of the tibial plateau fracture consisting of: -Toe-touch weight-bearing right lower extremity. -Hinged knee brace with early passive range of motion. -Ice and elevation for pain and swelling. -[id number] pain medications as needed. Follow-up in orthopedic clinic in 2 weeks.
--- NOTE | 2024-07-10 13:24 | PM.IMPN1 ---
Progress Note: A&P Assessment and plan (1) Closed fracture of tibial plateau: Problem details: - CT scan of right knee on 07/09/2024 demonstrates the followin. Minimally displaced acute fracture of the lateral tibial plateau with extension to the lateral tibial spine and minimal articular surface depression. Displaced fracture fragment versus intra-articular loose body measuring 0.5 cm within the lateral joint space. 2. Prominent lipohemarthrosis. 3. 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 - given patient's advanced gait instability due to multiple reasons, the initial plan is to admit patient to observation, apply knee immobilizer, work with PT and OT as well as Orthopedic surgery consult Orthopedic surgery consulted, recommending nonsurgical management with long hinge brace, nonweightbearing right lower extremity PT OT consult, social and political studies professor for discharge planning/placement needs Status: Acute (2) Gait instability: Problem details: Chronic, risk for falls PT/OT consults Status: Acute (3) Diabetic polyneuropathy: Problem details: Chronic, risk for falls Status: Acute (4) Autonomic neuropathy: Problem details: Diagnosis confirmed with tilt-table testing at [place] [id number] Status: Acute (5) Chronic ulcer of left foot due to diabetes mellitus: Problem details: Continue wound cares Status: Acute (6) Diabetes mellitus type 2 in obese: Problem details: Diagnosed 1989, severe neuropathy, proliferative retinopathy, bilateral vitrectomy, Charcot foot on the left in 2010, retinal exam stable in 2011 -07/09/2024: Continue with home medications glipizide and metformin and add sliding scale insulin q.i.d. a.c. and at bedtime Status: Chronic (7) Charcot foot due to diabetes mellitus: Problem details: Chronic Status: Acute (8) Paroxysmal atrial fibrillation: Problem details: Continue metoprolol and Xarelto Status: Chronic (9) Anticoagulation adequate: Problem details: Continue Xarelto Status: Acute (10) Hypertension: Problem details: Holding lisinopril for creatinine 1.7 Status: Chronic (11) Heart failure with preserved ejection fraction: Problem details: Continue hydrochlorothiazide Status: Chronic (12) Hyperlipidemia: Problem details: Continue statin Status: Chronic (13) Chronic kidney disease: Problem details: Creatinine 1.7, baseline 1.3-1.86 Avoid nephrotoxic medications, holding lisinopril, continue to monitor Status: Acute Time Spent With Patient Total time spent: Total time spent caring for the patient today was 45 minutes. This includes time spent for the visit reviewing the chart, time spent during the visit, time spent after the visit and documentation and planning in coordination of care. Subjective Date Seen: 07/10/24 Interval history: Patient is seen sitting up in bed this morning. Reports feeling pretty good. Pain is currently well managed. Has noticed pain in his right foot and ankle as well. X-rays were obtained of these joints in the ED and are negative for acute fractures. Denies headache or dizziness. Denies chest pain or shortness of breath. Tolerating orals without nausea vomiting. Patient tells me he has several assistive devices at home including crutches, several walkers, and a stair lift. Exam Narrative: Exam Narrative: PHYSICAL EXAM General: Pleasant, conversant, NAD HEENT: Normocephalic, atraumatic, sclera white, EOMI, oral mucosa moist Cardiovascular: RRR, S1S2. No pitting edema Pulmonary: CTA bilaterally without rhonchi, rales, expiratory wheezes. No dyspnea Neurological: Alert, answering questions appropriately, cranial nerves intact, no focal findings Extremities: RLE in immobilizer, mild swelling of foot and ankle, mild tenderness palpated over distal 2-3rd metatarsal. Neurovascularly intact Skin: Warm, dry. Const: Vital Signs, click to edit/add: Vital Signs - 24 hr 07/09/24 16:01 07/09/24 18:03 07/10/24 00:49 Temperature 98.0 F Pulse Rate [Pulse Oximeter] 78 67 Respiratory Rate 16 18 Blood Pressure [Ri ght Arm] Blood Pressure [Ri ght Upper Arm] 195/116 H 167/92 H Pulse Oximetry 99 99 99 Oxygen Delivery Me thod Room Air Room Air Room Air 07/10/24 00:49 07/10/24 00:49 07/10/24 00:57 Temperature Pulse Rate [Pulse Oximeter] 84 84 Respiratory Rate 18 18 Blood Pressure [Ri ght Arm] 115/64 115/64 Blood Pressure [Ri ght Upper Arm] Pulse Oximetry 99 99 99 Oxygen Delivery Me thod Room Air Room Air Room Air 07/10/24 04:10 07/10/24 07:56 07/10/24 07:56 Temperature 98.1 F 98.3 F Pulse Rate [Pulse Oximeter] 69 71 Respiratory Rate 20 16 16 Blood Pressure [Ri ght Arm] 144/54 H 158/49 H Blood Pressure [Ri ght Upper Arm] Pulse Oximetry 97 96 96 Oxygen Delivery Me thod Room Air Room Air Room Air 07/10/24 11:48 Temperature 98.5 F Pulse Rate [Pulse Oximeter] 61 Respiratory Rate 18 Blood Pressure [Ri ght Arm] 155/46 H Blood Pressure [Ri ght Upper Arm] Pulse Oximetry 99 Oxygen Delivery Me thod Room Air Labs Labs: Laboratory Results - last 24 hr 07/09/24 23:02 WBC 9.96 RBC 3.63 L Hgb 10.8 L Hct 33.4 L MCV 92 MCH 30 MCHC 32 RDW Coeff of Rama 14.3 Plt Count 234 Neut % (Auto) 76.6 H Lymph % (Auto) 13.1 L [place] % (Auto) 6.9 Eos % (Auto) 2.7 Baso % (Auto) 0.4 Neut # (Auto) 7.60 H Lymph # (Auto) 1.30 [place] # (Auto) 0.70 Eos # (Auto) 0.27 Baso # (Auto) 0.04 Abs Immat Gran (auto) 0.03 Imm/Tot Granulo (auto) 0.3 Sodium 139 Potassium 3.9 Chloride 108 Carbon Dioxide 26 Anion Gap 5 L BUN 14 Creatinine 1.7 H Estimated Creat Clear 46.92 Estimated GFR 44 Glucose 111 Calcium 8.6
[2024-07-10] MEDS: RIVAROXABAN 10 MG TABLET 20 MG PO (17:45)
--- NOTE | 2024-07-10 19:07 | PC.NURSE ---
End of shift-- Pleasant and cooperative, alert and oriented patient. VSS and pt is afebrile. SPO2 maintained >90% on RA. He denied any pain. LS CTA. He denied nausea, ate 100% of a regular dinner and had a large BM this evening. BG 130. He was up to the commode and chair with assist of 2, belt and walker and tolerated it fair. Dressing to outside of left foot appears to be gauze and a bandaid. C/D/I. Pt states that at home his changes the dressing with a piece of mesh every other day, but stated that it hasn't been done while here. Pt stated he will ask his to bring in his supplies. Report to oncoming shift.
[2024-07-10] MEDS: SIMVASTATIN 20 MG TABLET PO (21:25)
--- NOTE | 2024-07-11 05:53 | PC.NURSE ---
Pt pleasant and cooperative. He is a 2 person pivot transfer. Allowed him to sleep thru 3am vitals as he has been stable.Brace on at all times. did put a soft tubigrip on as he stated that the brace was rubbing and irritating his leg. he stated that itfelt better.
[2024-07-11 07:00] VITALS: BP 153/76; PULSE 68; RESP 16; RESP 18; TEMP 36.6; O2SAT 96; O2SAT 97
[2024-07-11 07:24] LABS: Chloride* 108 mmol/L (96-114); Potassium* 3.6 mmol/L (3.6-5.1); Sodium* 137 mmol/L (135-149)
[2024-07-11 07:27] LABS: Anion Gap 4 mEq/L (7-15); Blood Urea Nitrogen* 17 mg/dL (7-30); Carbon Dioxide* 25 mmol/L (20-32); Creatinine* 1.9 mg/dL (0.5-1.5); Est. Creatinine Clearance* 41.98; Estimated Glomerular Filt Rate 38 ml/min
[2024-07-11 07:28] LABS: Calcium* 8.2 mg/dL (8.4-10.6); Glucose* 120 mg/dL (60-115)
[2024-07-11] MEDS: OMEPRAZOLE 20 MG CAPSULE DR 40 MG PO (07:52)
[2024-07-11] MEDS: METFORMIN 500 MG TABLET 1000 MG PO ×2 (07:53→18:13)
[2024-07-11] MEDS: glipiZIDE XL 5 MG TAB 15 MG PO (09:57)
[2024-07-11] MEDS: MAGNESIUM OXIDE 400 MG TABLET PO (09:58)
[2024-07-11] MEDS: hydroCHLOROthiazide 12.5 MG CAPSULE PO (09:58)
[2024-07-11] MEDS: METOPROLOL TARTRATE 50 MG TABLET PO ×2 (09:58→21:40)
[2024-07-11 11:00] VITALS: BP 148/81; PULSE 86; RESP 20; TEMP 36.7; O2SAT 97
--- NOTE | 2024-07-11 11:51 | P.IMPN_ITS ---
Progress Note: A&P Assessment and plan (1) Closed fracture of tibial plateau: Problem details: - CT scan of right knee on 07/09/2024 demonstrates the followin. Minimally displaced acute fracture of the lateral tibial plateau with extension to the lateral tibial spine and minimal articular surface depression. Displaced fracture fragment versus intra-articular loose body measuring 0.5 cm within the lateral joint space. 2. Prominent lipohemarthrosis. 3. 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 - given patient's advanced gait instability due to multiple reasons, the initial plan is to admit patient to observation, apply knee immobilizer, work with PT and OT as well as Orthopedic surgery consult Orthopedic surgery consulted, recommending nonsurgical management with long hinge brace, nonweightbearing right lower extremity PT OT consult, neonatal social worker for discharge planning/placement needs Status: Acute (2) Gait instability: Problem details: Chronic, risk for falls PT/OT consults Status: Acute (3) Diabetic polyneuropathy: Problem details: Chronic, risk for falls Status: Acute (4) Autonomic neuropathy: Problem details: Diagnosis confirmed with tilt-table testing at [place] [id number] Status: Acute (5) Chronic ulcer of left foot due to diabetes mellitus: Problem details: Continue home wound cares qod Status: Acute (6) Diabetes mellitus type 2 in obese: Problem details: Diagnosed 1989, severe neuropathy, proliferative retinopathy, bilateral vitrectomy, Charcot foot on the left in 2010, retinal exam stable in 2011 -07/09/2024: Continue with home medications glipizide and metformin and add sliding scale insulin q.i.d. a.c. and at bedtime Status: Chronic (7) Charcot foot due to diabetes mellitus: Problem details: Chronic Status: Acute (8) Paroxysmal atrial fibrillation: Problem details: Continue metoprolol and Xarelto Status: Chronic (9) Anticoagulation adequate: Problem details: Continue Xarelto Status: Acute (10) Hypertension: Problem details: Holding lisinopril and HCTZ for creatinine 1.7 -> 1.9. Pressures stable, monitoring Status: Chronic (11) Heart failure with preserved ejection fraction: Problem details: Continue hydrochlorothiazide - hold for increase in creatinine for now Status: Chronic (12) Hyperlipidemia: Problem details: Continue statin Status: Chronic (13) Chronic kidney disease: Problem details: Creatinine 1.7, baseline 1.3-1.86 Avoid nephrotoxic medications, holding lisinopril and HCTZ Increased to 1.9 - will give 1L fluid over the day and recheck in am Status: Acute Plan Continue PT OT. Will have neonatal social worker assist in discharge planning/placement needs Time Spent With Patient Total time spent: Total time spent caring for the patient today was 45 minutes. This includes time spent for the visit reviewing the chart, time spent during the visit, time spent after the visit and documentation and planning in coordination of care. Subjective Date Seen: 07/11/24 Interval history: Patient is seen sitting up in a chair this morning. Reports feeling pretty good. Pain is currently well managed. Has been put into a long hinge brace and is nonweightbearing to the right lower extremity. Working with PT and OT. Plan will be to transition to SNF prior to returning home for ongoing acute rehab. Exam Narrative: Exam Narrative: PHYSICAL EXAM General: Pleasant, conversant, NAD HEENT: Normocephalic, atraumatic, sclera white, EOMI, oral mucosa moist Cardiovascular: RRR, S1S2. No pitting edema Pulmonary: CTA bilaterally without rhonchi, rales, expiratory wheezes. No dyspnea Neurological: Alert, answering questions appropriately, cranial nerves intact, no focal findings Extremities: RLE in long hinged brace, mild swelling of foot and ankle persists. Neurovascularly intact Skin: Warm, dry. Const: Vital Signs, click to edit/add: Vital Signs - 24 hr 07/10/24 15:00 07/10/24 15:00 07/10/24 15:00 Temperature 98.3 F Pulse Rate [Pulse Oximeter] 73 73 Respiratory Rate 16 16 16 Blood Pressure [Ri ght Arm] 151/81 H Pulse Oximetry 96 96 Oxygen Delivery Me thod Room Air Room Air 07/10/24 19:00 07/10/24 23:26 07/10/24 23:26 Temperature 98.7 F Pulse Rate [Pulse Oximeter] 74 75 Respiratory Rate 18 18 Blood Pressure [Ri ght Arm] 177/87 H 164/59 H Pulse Oximetry 97 97 97 Oxygen Delivery Me thod Room Air Room Air Room Air 07/11/24 07:00 07/11/24 07:00 07/11/24 07:00 Temperature 97.9 F Pulse Rate [Pulse Oximeter] 68 68 Respiratory Rate 18 16 16 Blood Pressure [[facility] Arm] 153/76 H Pulse Oximetry 97 96 Oxygen Delivery Me thod Room Air Room Air Labs Labs: Laboratory Results - last 24 hr 07/11/24 06:14 Sodium 137 Potassium 3.6 Chloride 108 Carbon Dioxide 25 Anion Gap 4 L BUN 17 Creatinine 1.9 H Estimated Creat Clear 41.98 Estimated GFR 38 Glucose 120 H Calcium 8.2 L
[2024-07-11] MEDS: INSULIN ASPART 100 UNIT/ML SUBCUT ×3 (11:53→21:42)
[2024-07-11] MEDS: 0.9 % SODIUM CHLORIDE 1000 ml 1,000 ML 125 ML IV (12:18)
[2024-07-11 15:00] VITALS: BP 171/108; PULSE 69; RESP 16; TEMP 36.7; O2SAT 97
[2024-07-11] MEDS: RIVAROXABAN 10 MG TABLET 20 MG PO (18:13)
[2024-07-11 19:00] VITALS: BP 146/85; PULSE 94; RESP 20; TEMP 36.7; O2SAT 95
--- NOTE | 2024-07-11 20:01 | PC.NURSE ---
End of shift-- Pleasant and cooperative, alert and oriented patient. VSS and pt is afebrile. SPO2 maintained >90% on RA. He denied any pain, other than the ordinary. LS CTA. He denied nausea and had 2-3 large BMs today. Dressing to left foot was changed and is C/D/I. Baseline neuropathy. Pt was up to the chair and commode with assist of 2, belt and walker and tolerated it well. is at bedside this evening and appears loving and supportive.
[2024-07-11] MEDS: SIMVASTATIN 20 MG TABLET PO (21:40)
[2024-07-11 23:46] VITALS: BP 132/90; PULSE 64; RESP 20; TEMP 36.7; O2SAT 97
[2024-07-12 03:00] VITALS: BP 144/79; PULSE 72; RESP 20; TEMP 36.8; O2SAT 95
--- NOTE | 2024-07-12 06:08 | PC.NURSE ---
Pt pleasant and cooperative. VSS He is up with Aof 2. and TTWB on the right. He has tolerated this wwell. Brace on when up and awake. Did have off for a bit while resting.
[2024-07-12] MEDS: OMEPRAZOLE 20 MG CAPSULE DR 40 MG PO (06:21)
[2024-07-12 07:04] LABS: Chloride* 108 mmol/L (96-114); Potassium* 3.7 mmol/L (3.6-5.1); Sodium* 137 mmol/L (135-149)
[2024-07-12 07:07] LABS: Anion Gap 6 mEq/L (7-15); Blood Urea Nitrogen* 18 mg/dL (7-30); Carbon Dioxide* 23 mmol/L (20-32); Creatinine* 1.8 mg/dL (0.5-1.5); Est. Creatinine Clearance* 44.31; Estimated Glomerular Filt Rate 41 ml/min
[2024-07-12 07:08] LABS: Glucose* 86 mg/dL (60-115)
[2024-07-12 08:15] VITALS: BP 158/76; PULSE 85; RESP 20; TEMP 36.7; O2SAT 97
[2024-07-12] MEDS: METFORMIN 500 MG TABLET 1000 MG PO ×2 (08:37→18:21)
[2024-07-12] MEDS: MAGNESIUM OXIDE 400 MG TABLET PO (08:37)
[2024-07-12] MEDS: glipiZIDE XL 5 MG TAB 15 MG PO (08:38)
[2024-07-12] MEDS: METOPROLOL TARTRATE 50 MG TABLET PO ×2 (09:00→21:15)
--- NOTE | 2024-07-12 10:52 | PC.SOCIAL ---
Addendum entered by FRANKLIN Ramos 07/12/24 15:52: Discharge planning: Pre-admission screening completed and sent to Carly at [facility]. [id number]. Social work to follow-up as needed. Addendum entered by FRANKLIN Ramos 07/12/24 13:59: Discharge planning: Carly at [facility] let this worker know that they could accept the pt today for short-term rehab. Pt would need to private pay. germination worker spoke to the pt about being accepted to [facility] today and that he would need to private pay, which would require a $10,000.00 deposit at admission. Pt stated that he did not have money to pay privately and that he would like to appeal his discharge if he was going to have to discharge from the hospital today. Pt will have his third night of inpatient hospital status after tonight and will have Medicare coverage for a short-term rehab stay starting tomorrow. germination worker then talked to the provider on duty about the pt not being able to pay privately for short-term rehab and that he would like to appeal his discharge with the hospital if he was going to be discharged today. germination worker did confirm with [facility] that they would hold the bed for the pt and that he can come on Friday 07/13. It would not be safe for the pt to discharge home from the hospital at all due to his current condition. The provider on duty is fine with the pt staying in the hospital tonight and discharging to [facility] tomorrow. Pt's girlfriend will be able to transport him and will be at the hospital by 1pm tomorrow, as pt needs to be to [facility] by no later than 2pm. Social work to follow-up as needed. Original Note: Discharge planning: germination worker met with the pt this morning to discuss discharge planning. Pt is being recommended for short-term rehab at discharge. germination worker provided the pt with a list of [facility] for review. Pt's first choice for placement is [facility] in [place] whom has male TCU openings right now per Carly at [facility]. germination worker secure emailed Carly a referral packet on the pt for review. Pt then also stated that his second choice would be [facility] in [place] and his third choice would be [facility] in [place]. Social work to follow-up as needed.
[2024-07-12 11:00] VITALS: BP 159/75; PULSE 71; RESP 18; TEMP 36.7; O2SAT 99
--- NOTE | 2024-07-12 13:51 | PM.ORPN ---
Subjective Subjective Time Seen by Provider: 13:45 Date Seen: 07/12/24 Principal diagnosis: Right knee and foot pain Interval history: Patient reports doing okay. His knee is feeling much better than yesterday. His right foot is also feeling better than yesterday. The brace is causing some discomfort to his posterior upper leg, and continues to slide down. Ortho Exam Narrative Exam Narrative: -Patient appears comfortable; no apparent acute distress -Alert and oriented times 3 -Right knee mildly swollen; soft tissues supple; no erythematous streaking. Warmth appropriate. T scope brace in place, locked in extension, sliding down below the knee -Pain to palpation along the lateral tibial plateau -Bilateral calfs soft; no significant swelling, edema, tenderness, erythema, discoloration, warmth, or palpable cords -2+ DP/PT pulses, intact dermatomes and myotomes distally (5/5 strength) Const Vital Signs, click to edit/add: Vital Signs - 24 hr 07/11/24 15:00 07/11/24 15:00 07/11/24 15:00 Temperature 98.1 F Pulse Rate [Pulse Oximeter] 69 69 Respiratory Rate 16 16 16 Blood Pressure [Left Arm] Blood Pressure [Right Arm] 171/108 H Pulse Oximetry 97 97 Oxygen Delivery Method Room Air Room Air 07/11/24 19:00 07/11/24 23:46 07/11/24 23:46 Temperature 98.1 F 98.1 F Pulse Rate [Pulse Oximeter] 94 64 Respiratory Rate 20 20 Blood Pressure [Left Arm] Blood Pressure [Right Arm] 146/85 H 132/90 H Pulse Oximetry 95 97 97 Oxygen Delivery Method Room Air Room Air Room Air 07/12/24 03:00 07/12/24 08:15 07/12/24 08:15 Temperature 98.3 F 98.1 F Pulse Rate [Pulse Oximeter] 72 85 Respiratory Rate 20 20 20 Blood Pressure [Left Arm] 158/76 H Blood Pressure [Right Arm] 144/79 H Pulse Oximetry 95 97 97 Oxygen Delivery Method Room Air Room Air Room Air 07/12/24 11:00 Temperature 98.0 F Pulse Rate [Pulse Oximeter] 71 Respiratory Rate 18 Blood Pressure [Left Arm] 159/75 H Blood Pressure [Right Arm] Pulse Oximetry 99 Oxygen Delivery Method Room Air Assessment and Plan Assessment and plan (1) Closed fracture of tibial plateau: Problem details: - CT scan of right knee on 07/09/2024 demonstrates the followin. Minimally displaced acute fracture of the lateral tibial plateau with extension to the lateral tibial spine and minimal articular surface depression. Displaced fracture fragment versus intra-articular loose body measuring 0.5 cm within the lateral joint space. 2. Prominent lipohemarthrosis. 3. 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 - given patient's advanced gait instability due to multiple reasons, the initial plan is to admit patient to observation, apply knee immobilizer, work with PT and OT as well as Orthopedic surgery consult Orthopedic surgery consulted, recommending nonsurgical management with long hinge brace, nonweightbearing right lower extremity PT OT consult, case management social worker for discharge planning/placement needs Status: Acute (2) Gait instability: Problem details: Chronic, risk for falls PT/OT consults Status: Acute (3) Diabetic polyneuropathy: Problem details: Chronic, risk for falls Status: Acute (4) Autonomic neuropathy: Problem details: Diagnosis confirmed with tilt-table testing at [place] [address] Status: Acute (5) Chronic ulcer of left foot due to diabetes mellitus: Problem details: Continue home wound cares qod Status: Acute (6) Diabetes mellitus type 2 in obese: Problem details: Diagnosed 1989, severe neuropathy, proliferative retinopathy, bilateral vitrectomy, Charcot foot on the left in 2010, retinal exam stable in 2011 -07/09/2024: Continue with home medications glipizide and metformin and add sliding scale insulin q.i.d. a.c. and at bedtime Status: Chronic (7) Charcot foot due to diabetes mellitus: Problem details: Chronic Status: Acute (8) Paroxysmal atrial fibrillation: Problem details: Continue metoprolol and Xarelto Status: Chronic (9) Anticoagulation adequate: Problem details: Continue Xarelto Status: Acute (10) Hypertension: Problem details: Holding lisinopril and HCTZ for creatinine 1.7 -> 1.9. Pressures stable, monitoring Status: Chronic (11) Heart failure with preserved ejection fraction: Problem details: Continue hydrochlorothiazide - hold for increase in creatinine for now Status: Chronic (12) Hyperlipidemia: Problem details: Continue statin Status: Chronic (13) Chronic kidney disease: Problem details: Creatinine 1.7, baseline 1.3-1.86 Avoid nephrotoxic medications, holding lisinopril and HCTZ Increased to 1.9 - will give 1L fluid over the day and recheck in am Status: Acute Plan In regards to his right knee: The brace was adjusted. Brace can be unlocked when sedentary, primary 0-90 degrees. He also can on clip the brace at the 4 locations and keep the brace in place posteriorly when sedentary in the chair. Brace should be locked in extension when up, continue toe-touch weightbear right lower extremity. He should follow-up with Dr. Jayme Nicole once discharged from SNF.
--- NOTE | 2024-07-12 14:15 | NUTR.NU ---
RDN with diet education related to diabetic diet. Patient admitted with tibia fracture status post fall. Past medical history includes but not limited to CKD, HLD, HTN, type 2 diabetes, and heart failure. Current weight 255lb 8oz; height 6ft; BMI 34.7 kg/m2. Weight has been stable recently. Current diet is diabetic. Meal intakes have been adequate since admit. RDN visited with patient whom reports he tries to focus on protein at meals and drinking fluids between meals. He has no questions related to diabetic diet at this time and declined diet education. Plan is for patient to go to SNF for rehab tomorrow. RDN will continue to monitor and follow-up prn.
[2024-07-12 15:00] VITALS: BP 143/60; PULSE 81; RESP 18; TEMP 36.7; O2SAT 98
--- NOTE | 2024-07-12 15:30 | P.IMPN_ITS ---
Progress Note: A&P Assessment and plan (1) Closed fracture of tibial plateau: Problem details: - CT scan of right knee on 07/09/2024 demonstrates the followin. Minimally displaced acute fracture of the lateral tibial plateau with extension to the lateral tibial spine and minimal articular surface depression. Displaced fracture fragment versus intra-articular loose body measuring 0.5 cm within the lateral joint space. 2. Prominent lipohemarthrosis. 3. 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 - given patient's advanced gait instability due to multiple reasons, the initial plan is to admit patient to observation, apply knee immobilizer, work with PT and OT as well as Orthopedic surgery consult Orthopedic surgery consulted, recommending nonsurgical management with long hinge brace, toe-touch weightbearing right lower extremity. Outpatient follow- up PT OT consult, social organization professor for discharge planning/placement needs Status: Acute (2) Gait instability: Problem details: Chronic, risk for falls PT/OT consults Status: Acute (3) Diabetic polyneuropathy: Problem details: Chronic, risk for falls Status: Acute (4) Autonomic neuropathy: Problem details: Diagnosis confirmed with tilt-table testing at [place] [id number] Status: Acute (5) Chronic ulcer of left foot due to diabetes mellitus: Problem details: Continue home wound cares qod Status: Acute (6) Diabetes mellitus type 2 in obese: Problem details: Diagnosed 1989, severe neuropathy, proliferative retinopathy, bilateral vitrectomy, Charcot foot on the left in 2010, retinal exam stable in 2011 -07/09/2024: Continue with home medications glipizide and metformin and add sliding scale insulin q.i.d. a.c. and at bedtime Status: Chronic (7) Charcot foot due to diabetes mellitus: Problem details: Chronic Status: Acute (8) Paroxysmal atrial fibrillation: Problem details: Continue metoprolol and Xarelto Status: Chronic (9) Anticoagulation adequate: Problem details: Continue Xarelto Status: Acute (10) Hypertension: Problem details: Holding lisinopril and HCTZ for creatinine 1.7 (chronic) Pressures stable, monitoring Status: Chronic (11) Heart failure with preserved ejection fraction: Problem details: Continue hydrochlorothiazide - hold for increase in creatinine for now. Resume at discharge Status: Chronic (12) Hyperlipidemia: Problem details: Continue statin Status: Chronic (13) Chronic kidney disease: Problem details: Creatinine 1.7, baseline 1.3-1.86 Avoid nephrotoxic medications, holding lisinopril and HCTZ Increased to 1.9 - will give 1L fluid over the day and recheck in am -> improved to 1.8, near baseline Status: Acute Plan Continue PT OT. Will discharge to [facility] 07/13/24 Time Spent With Patient Total time spent: Total time spent caring for the patient today was 45 minutes. This includes time spent for the visit reviewing the chart, time spent during the visit, time spent after the visit and documentation and planning in coordination of care. Subjective Date Seen: 07/12/24 Interval history: Patient is seen sitting up in a chair this morning. Reports feeling well. Has had multiple loose stools this morning which is normal for him. Denies abdominal pain. No nausea or vomiting. Tolerating orals. Continues to work with therapies. Awaiting discharge to [facility] tomorrow. Exam Narrative: Exam Narrative: PHYSICAL EXAM General: Pleasant, conversant, NAD Cardiovascular: RRR, S1S2. No pitting edema Pulmonary: CTA bilaterally without rhonchi, rales, expiratory wheezes. No dyspnea Neurological: Alert, answering questions appropriately, cranial nerves intact, no focal findings Extremities: RLE in long hinged brace, mild swelling of foot and ankle persists. Neurovascularly intact Skin: Warm, dry. Const: Vital Signs, click to edit/add: Vital Signs - 24 hr 07/11/24 19:00 07/11/24 23:46 07/11/24 23:46 Temperature 98.1 F 98.1 F Pulse Rate [Pulse Oximeter] 94 64 Respiratory Rate 20 20 Blood Pressure [Le ft Arm] Blood Pressure [Ri ght Arm] 146/85 H 132/90 H Pulse Oximetry 95 97 97 Oxygen Delivery Me thod Room Air Room Air Room Air 07/12/24 03:00 07/12/24 08:15 07/12/24 08:15 Temperature 98.3 F 98.1 F Pulse Rate [Pulse Oximeter] 72 85 Respiratory Rate 20 20 20 Blood Pressure [Le ft Arm] 158/76 H Blood Pressure [Ri ght Arm] 144/79 H Pulse Oximetry 95 97 97 Oxygen Delivery Me thod Room Air Room Air Room Air 07/12/24 11:00 Temperature 98.0 F Pulse Rate [Pulse Oximeter] 71 Respiratory Rate 18 Blood Pressure [Le ft Arm] 159/75 H Blood Pressure [Ri ght Arm] Pulse Oximetry 99 Oxygen Delivery Me thod Room Air Labs Labs: Laboratory Results - last 24 hr 07/12/24 06:29 Sodium 137 Potassium 3.7 Chloride 108 Carbon Dioxide 23 Anion Gap 6 L BUN 18 Creatinine 1.8 H Estimated Creat Clear 44.31 Estimated GFR 41 Glucose 86 Calcium 8.0 L
[2024-07-12] MEDS: RIVAROXABAN 10 MG TABLET 20 MG PO (18:21)
[2024-07-12 19:00] VITALS: BP 163/69; PULSE 76; RESP 16; TEMP 36.9; O2SAT 98
--- NOTE | 2024-07-12 19:25 | PC.NURSE ---
Pleasant and cooperative. Up to bedside commode with hinged knee brace in lock position, shoes, gait belt, walker, and assist of 2. Denies pain. Per pt Chronic soft to loose stool. Plan to DC Friday to -.
[2024-07-12] MEDS: SIMVASTATIN 20 MG TABLET PO (21:14)
[2024-07-12] MEDS: OXYCODONE 5 MG TABLET 2.5 MG PO (21:14)
[2024-07-12] MEDS: GABAPENTIN 100 MG CAPSULE 200 MG PO (21:15)
[2024-07-12 22:39] LABS: SARS Antigen* Negative (Negative)
[2024-07-12 23:00] VITALS: BP 129/94; PULSE 74; RESP 18; TEMP 36.9; O2SAT 98
[2024-07-13 03:00] VITALS: BP 144/76; PULSE 67; RESP 16; TEMP 36.8; O2SAT 99
[2024-07-13] MEDS: OMEPRAZOLE 20 MG CAPSULE DR 40 MG PO (06:34)
--- NOTE | 2024-07-13 06:42 | PC.NURSE ---
End of shift report [id number]: Pleasant and cooperative with cares. Patient reporting pain in right foot, states that he had difficulty sleeping the previous night. Patient reports that he previously was on gabapentin and he was wondering about taking it again. Wood Barker spoke with Dr. Nicole, new order for gabapentin 200mg one time dose at [facility]. At 0615 patient reports that he slept well and denies any pain in his right foot at night, he feels medication was effective for the pain. Denies any SOB or chest pain. Bowel sounds active x 4, loose stool x 3. Per patient he has had loose stools for several years, he has had several tests done that all were negative. Transferred and ambulated with SBA, requested that staff do not assist with standing him unless he asks for lift. Tolerating right knee brace, patient to have hinge locked at all times when ambulating, ok to release hinge when in bed.
[2024-07-13 08:04] VITALS: BP 171/65; PULSE 87; RESP 18; TEMP 36.6; O2SAT 99
[2024-07-13] MEDS: METFORMIN 500 MG TABLET 1000 MG PO (08:17)
[2024-07-13] MEDS: MAGNESIUM OXIDE 400 MG TABLET PO (09:33)
[2024-07-13] MEDS: glipiZIDE XL 5 MG TAB 15 MG PO (09:33)
[2024-07-13] MEDS: METOPROLOL TARTRATE 50 MG TABLET PO (09:34)
--- NOTE | 2024-07-13 10:29 | PM.DS1 ---
DS: Providers Provider Date Seen: 07/13/24 Date of admission: 07/10/24 17:41 Primary care physician: Domingo Sheffield MD Admitting Clinician: Chad Luna MD Consults: 07/09/24 22:52 Consult to Occupational Therapy [CONS] Routine Comment: Reason(s) for OT Consult:: Evaluate and Treat Any Restrictions?:: Touch Toe Wt Bearing Comment: TTWB Right foot Consult to Physical Therapy [CONS] Routine Comment: Reason(s) for PT Consult:: Evaluate and Treat Any Restrictions?:: Touch Toe Wt Bearing Comment: TTWB right foot Consult to Physician [CONS] Routine Comment: Consulting Provider: Loki Nicole Has provider been notified: Yes Consult to Autism Teacher [CONS] Routine Comment: Reason for Consult:: Discharge Planning Needs Attending Physician on discharge: Esther Meraz [facility], PA-C [facility] Hospitalist Date of Discharge: 07/13/24 DS: Diagnosis Discharge Diagnosis (1) Closed fracture of tibial plateau: Status: Acute Problem details: - CT scan of right knee on 07/09/2024 demonstrates the followin. Minimally displaced acute fracture of the lateral tibial plateau with extension to the lateral tibial spine and minimal articular surface depression. Displaced fracture fragment versus intra-articular loose body measuring 0.5 cm within the lateral joint space. 2. Prominent lipohemarthrosis. 3. 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 - given patient's advanced gait instability due to multiple reasons, the initial plan is to admit patient to observation, apply knee immobilizer, work with PT and OT as well as Orthopedic surgery consult Orthopedic surgery consulted, recommending nonsurgical management with long hinge brace, toe-touch weightbearing right lower extremity. Outpatient follow-up PT OT consult, health care social worker for discharge planning/placement needs Per orthopedic surgery, Brace can be unlocked when sedentary, primary 0-90 degrees. He also can on clip the brace at the 4 locations and keep the brace in place posteriorly when sedentary in the chair. Brace should be locked in extension when up, continue toe-touch weightbear right lower extremity. (2) Gait instability: Status: Acute Problem details: Chronic, risk for falls PT/OT consults (3) Diabetic polyneuropathy: Status: Acute Problem details: Chronic, risk for falls (4) Autonomic neuropathy: Status: Acute Problem details: Diagnosis confirmed with tilt-table testing at [place] 2017 (5) Chronic ulcer of left foot due to diabetes mellitus: Status: Acute Problem details: Continue home wound cares qod (6) Diabetes mellitus type 2 in obese: Status: Chronic Problem details: Diagnosed 1989, severe neuropathy, proliferative retinopathy, bilateral vitrectomy, Charcot foot on the left in 2010, retinal exam stable in 2011 -07/09/2024: Continue with home medications glipizide and metformin and add sliding scale insulin q.i.d. a.c. and at bedtime Blood sugars well managed. Discharged on home medications. (7) Charcot foot due to diabetes mellitus: Status: Acute Problem details: Chronic (8) Paroxysmal atrial fibrillation: Status: Chronic Problem details: Continue metoprolol and Xarelto (9) Anticoagulation adequate: Status: Acute Problem details: Continue Xarelto (10) Hypertension: Status: Chronic Problem details: Holding lisinopril and HCTZ for creatinine 1.7 (chronic) Pressures stable, monitoring (11) Heart failure with preserved ejection fraction: Status: Chronic Problem details: Continue hydrochlorothiazide - hold for increase in creatinine for now. Resume at discharge (12) Hyperlipidemia: Status: Chronic Problem details: Continue statin (13) Chronic kidney disease: Status: Acute Problem details: Creatinine 1.7, baseline 1.3-1.86 Avoid nephrotoxic medications, holding lisinopril and HCTZ Increased to 1.9 - will give 1L fluid over the day and recheck in am -> improved to 1.8, near baseline Creatinine at baseline upon discharge. Outpatient follow-up with PCP. DS: Summary Hospital Course Hospital Course: Course of care and details as noted above. Remainder of chronic medical comorbidities were monitored and managed with home medications. Status at Discharge Functional status at discharge: uses cane/walker Overall status at discharge: patient is progressing back to baseline Time Spent with Patient Time attestation: Total time spent providing and/or coordinating discharge services: Time spent: Greater than 30 minutes Exam Narrative: Exam Narrative: PHYSICAL EXAM General: Pleasant, conversant, NAD Cardiovascular: RRR Pulmonary: No dyspnea Neurological: Alert, answering questions appropriately Skin: Warm, dry. Const: Vital Signs, click to edit/add: Vital Signs - 24 hr 07/12/24 11:00 07/12/24 15:00 07/12/24 15:00 Temperature 98.0 F Pulse Rate [Pulse Oximeter] 71 81 Respiratory Rate 18 18 18 Blood Pressure [Le ft Arm] 159/75 H Blood Pressure [Ri ght Arm] Pulse Oximetry 99 98 Oxygen Delivery Me thod Room Air Room Air 07/12/24 15:00 07/12/24 19:00 07/12/24 23:00 Temperature 98.1 F 98.4 F Pulse Rate [Pulse Oximeter] 81 76 74 Respiratory Rate 18 16 18 Blood Pressure [Le ft Arm] 143/60 H 163/69 H Blood Pressure [Ri ght Arm] Pulse Oximetry 98 98 Oxygen Delivery Me thod Room Air Room Air 07/12/24 23:00 07/12/24 23:00 07/13/24 03:00 Temperature 98.4 F 98.3 F Pulse Rate [Pulse Oximeter] 74 67 Respiratory Rate 18 18 16 Blood Pressure [Le ft Arm] 129/94 H Blood Pressure [Ri ght Arm] 144/76 H Pulse Oximetry 98 98 99 Oxygen Delivery Me thod Room Air Room Air Room Air 07/13/24 08:04 07/13/24 08:04 07/13/24 08:04 Temperature 97.8 F Pulse Rate [Pulse Oximeter] 87 87 Respiratory Rate 18 18 18 Blood Pressure [Le ft Arm] 171/65 H Blood Pressure [Ri ght Arm] Pulse Oximetry 99 99 Oxygen Delivery Me thod Room Air Room Air DS: Data Data Completed and Pending Completed studies during hospitalization: Procedures Introduction of Other Gas into Respiratory Tract, Via Natural or Artificial Opening (04/01/22) Labs on day of discharge: Labs from last 24 hours 07/12/24 22:32 SARS-CoV-2 Ag (Rapid) Negative Discharge Plan Discharge Disposition: Xfer SNF Discharge [facility]: [facility] Date of Admission: 07/10/24 17:41 Attending Provider on Discharge: Esther Meraz Consulting Providers: Loki Nicole Kyle J Primary Care Provider: Domingo Sheffield Condition: Stable Anticipated Discharge Date/Time: 07/13/24 10:11 Discharge Medications: New metformin 500 mg Tablet 1,000 mg PO BIDWM Qty: 120 0RF gabapentin 300 mg capsule 300 mg PO QHS Qty: 30 0RF Continued glipizide 5 mg tablet extended release 24hr 15 mg PO DAILY simvastatin 20 mg tablet 20 mg PO HS metoprolol tartrate 50 mg tablet 50 mg PO BID nitroglycerin 0.4 mg tablet, sublingual 0.4 mg sublingual Q5M PRN Patient Comments: ONE TABLET UNDER TONGUE NEEDED FOR CHEST PAIN omeprazole 20 mg capsule,delayed release(DR/EC) 40 mg PO DAILY lisinopril-hydrochlorothiazide 10-12.5 mg tablet 1 tab PO DAILY Xarelto 20 mg tablet 20 mg PO DAILY@18 albuterol sulfate [Ventolin HFA] 90 mcg/actuation HFA aerosol inhaler 2 inh inhalation QID PRN ascorbic acid (vitamin C) 500 mg tablet 1 g PO DAILY calcium carbonate-vitamin D3 [Calcium 600 + D(3)] 600 mg-5 mcg (200 unit) tablet 2 tab PO BID cetirizine [24Hour Allergy] 10 mg tablet 10 mg PO DAILY PRN copper gluconate 2 mg tablet 4 mg PO DAILY ferrous sulfate [Feosol] 325 mg (65 mg iron) tablet 325 mg PO BID multivitamin Tablet 1 tab PO DAILY vitamin A 10,000 unit capsule 10,000 unit PO DAILY zinc sulfate 50 mg zinc (220 mg) capsule 50 mg PO BID Changed magnesium oxide 400 mg (241.3 mg magnesium) tablet 400 mg PO QHS Qty: 30 0RF Discontinued metformin 500 mg tablet extended release 24 hr 500 mg PO BID Discharge Orders: Discharge Order (Routine); Ordered 07/13/24 Ordered By: Esther Meraz Additional Instructions: Per Orthopedic Surgery: Brace can be unlocked when sedentary, primary 0-90 degrees. He also can on clip the brace at the 4 locations and keep the brace in place posteriorly when sedentary in the chair. Brace should be locked in extension when up, continue toe-touch weightbear right lower extremity. He should follow-up with Dr. Jayme Nicole once discharged from SNF. Activity Level: Activity as Tolerated and Toe Touch Wt Bearing Activity Detail: TTWB RLE Activity Restrictions: Wear hinge brace when ambulating. Discharge Diet: Diabetic Follow Up Appointments: Domingo Sheffield MD [Primary Care Provider] - Forms: MyHealth Info Instructions Wound Care: Continue wound cares to left foot every other day Admit to: SNF Discharge Potential: Good Length of Stay: <30 days Can use facility standing orders?: Yes Code Status: Full Code Rehab Potential: Good Therapy: Physical Therapy and Occupational Therapy Therapy Orders: Evaluate and Treat Oxygen: No Urinary Catheter: No Glucose Checks: as needed Orders are good >30 days: No Signature: HARRIS Rodríguez, PA-[facility] Hospitalist
--- NOTE | 2024-07-13 12:07 | PC.SOCIAL ---
Discharge planning: Pt was provided with a copy of The Important Message from Medicare and explained the hospital discharge appeal process. Pt is in agreement with his discharge plan to [facility] and does not plan to appeal his discharge. Pt's will transport him to [facility]. Social work to follow-up as needed.
[2024-07-13 12:11] VITALS: BP 155/100; PULSE 88; RESP 22; TEMP 36.7; O2SAT 98
--- NOTE | 2024-07-13 13:00 | PC.NURSE ---
Discharge: Patient pleasant and cooperative, alert and oriented. Patient vitally stable, lungs clear, BS WNL, IV removed, catheter intact. Patient denies pain, ambulates 1 assist/walker. Right brace on leg correctly in place. Right foot dressing C/D/I. Patient tolerating diet, urinating well, and has had 3 loose stools. Patient signed belongings sheet and discharge form. Nurse to nurse report given to Lisa at [facility]. Patient left the floor by wheelchair to [facility] with partner.
== END 2024-07-13 12:49 | DRG 563 ==
LOC: ED 21:12 → MEDSURG 22:16
PROVIDERS: Family Medicine; Physician Assistant; Admitting Provider Internal Medicine; Emergency Provider Student in an Organized Health Care Education/Training Program; PCP Family Medicine; Visit Provider Internal Medicine
DX: S82.141A Displaced bicondylar fracture of right tibia, initial encounter for closed fracture (principal); I13.0 Hypertensive heart and chronic kidney disease with heart failure and stage 1 through stage 4 chronic kidney disease, or unspecified chronic kidney disease; I50.32 Chronic diastolic (congestive) heart failure; M17.11 Unilateral primary osteoarthritis, right knee; E11.43 Type 2 diabetes mellitus with diabetic autonomic (poly)neuropathy; E11.610 Type 2 diabetes mellitus with diabetic neuropathic arthropathy; E11.22 Type 2 diabetes mellitus with diabetic chronic kidney disease; N18.9 Chronic kidney disease, unspecified; E11.621 Type 2 diabetes mellitus with foot ulcer; L97.529 Non-pressure chronic ulcer of other part of left foot with unspecified severity; Z79.84 Long term (current) use of oral hypoglycemic drugs; Z79.01 Long term (current) use of anticoagulants; G47.33 Obstructive sleep apnea (adult) (pediatric); I48.0 Paroxysmal atrial fibrillation; E66.01 Morbid (severe) obesity due to excess calories; W01.0XXA Fall on same level from slipping, tripping and stumbling without subsequent striking against object, initial encounter; R26.81 Unsteadiness on feet; I87.2 Venous insufficiency (chronic) (peripheral); F41.1 Generalized anxiety disorder; F32.A Depression, unspecified; I25.2 Old myocardial infarction; I25.10 Atherosclerotic heart disease of native coronary artery without angina pectoris; E78.5 Hyperlipidemia, unspecified; E55.9 Vitamin D deficiency, unspecified; Z95.5 Presence of coronary angioplasty implant and graft; E11.3599 Type 2 diabetes mellitus with proliferative diabetic retinopathy without macular edema, unspecified eye; Z68.34 Body mass index [BMI] 34.0-34.9, adult
CPT/HCPCS: 36415; 70450; 72125; 73562; 73590; 73610; 73630; 73700; 80048; 82962; 85025; 87426; 87631; 97110; 97162; 97165; 97530; 97535; 99284; 99285; A9270; G0378; J7030